=== PATIENT | male | born 1995 | race African-American/Black ===

== ENCOUNTER 2019-08-05 20:17 | Emergency (ER) | payer OTHER, MEDICARE, MEDICAID, SELFPAY ==
--- NOTE | ~2019-08-05 | XR_ITS ---
EXAMINATION: XR chest 1V portable INDICATION: Cough, exposure to COVID TECHNIQUE: Portable AP chest at 2130 hours COMPARISON: None available FINDINGS: There are minimal airspace opacities of the lung bases, left greater than right. No pleural effusion or pneumothorax is identified. The cardiomediastinal silhouette is normal. The visualized o sseous structures are unremarkable. IMPRESSION: 1. Bibasilar airspace opacities. Pattern is nonspecific but consistent with COVID pneumonia. Reviewed, dictated and finalized at location A. IMPRESSION: 1. Bibasilar airspace opacities. Pattern is nonspecific but consistent with COV ID pneumonia.
[2019-08-05 20:27] VITALS: BP 110/59; PULSE 89; RESP 18; TEMP 37.2; O2SAT 98
--- NOTE | 2019-08-05 21:37 | ED.GENADULT ---
HPI - General Adult General Chief complaint: Unspecified <LORI Fry Last Filed: 08/05/19 21:56> Stated complaint: wants tested for Covid <LORI Fry Last Filed: 08/05/19 21:56> Time Seen by Provider: 08/05/19 20:31 <LORI Fry Last Filed: 08/05/19 21:56> Source: patient <LORI Fry Last Filed: 08/05/19 21:56> Mode of arrival: ambulatory <LORI Fry Last Filed: 08/05/19 21:56> Limitations: no limitations <LORI Fry Last Filed: 08/05/19 21:56> History of Present Illness HPI narrative: This is a 24-year-old male that presents the emergency department for cold symptoms since yesterday. Reports cough, headache and sore throat. Reports he thinks he was exposed to coronavirus. Denies fever or shortness of breath <LORI Fry Last Filed: 08/05/19 21:56> Related Data Home medications: Home Medications Medication Instructions Recorded Confirmed chlorpromazine 01/01/19 oxcarbazepine 01/01/19 benztropine 08/05/19 08/05/19 buspirone mg 08/05/19 divalproex PO 08/05/19 divalproex PO 08/05/19 lithium carbonate 08/05/19 omeprazole 08/05/19 trazodone 08/05/19 <LORI Fry Last Filed: 08/05/19 21:56> Allergies/adverse reactions: Allergies Allergy/AdvReac Type Severity Reaction Status Date / Time banana Allergy Unknown Anaphylactic Verified 08/05/19 20:46 Shock latex Allergy Unknown Other Verified 08/05/19 20:46 <LORI Fry Last Filed: 08/05/19 21:56> Review of Systems Review of Systems: Narrative: CONSTITUTIONAL: Denies fever ENT: Reports rhinorrhea, congestion, sore throat CARDIOVASCULAR: Denies chest pain RESPIRATORY: Reports cough. Denies dyspnea. <Rajni Hernandez PA-C - Last Filed: 08/05/19 21:56> All systems reviewed & are unremarkable except as noted in HPI and below <Rajni Hernandez PA-C - Last Filed: 08/05/19 21:56> PMFSH Past Medical History Medical History: Medical History (Updated 08/05/19 @ 21:54 by Rajni Hernandez PA-C) Bipolar 1 disorder History of gastroesophageal reflux (GERD) Schizoaffective disorder <Rajni Hernandez PA-C - Last Filed: 08/05/19 21:56> Social History Social History: Social History Smoking status: Never smoker Alcohol intake: unknown <Rajni Hernandez PA-C - Last Filed: 08/05/19 21:56> Exam Narrative: Exam Narrative: GENERAL: Well-appearing, well-nourished, and in no acute distress. HEAD: Normocephalic, atraumatic. EYES: EOMI. ENT: Nares clear, no rhinorrhea or epistaxis. Mucous membranes moist. Oropharynx without tonsillar hypertrophy exudate or other lesions. Bilateral TMs pearly mayes non-bulging NECK: Supple. No adenopathy or masses. CHEST: Clear to auscultation. No respiratory distress. No wheezes rales or rhonchi HEART: Regular rate and rhythm. No murmur heard. Normal peripheral pulses. EXTREMITIES: Normal range of motion. No edema. SKIN: Warm, dry, no rash. NEURO: No focal deficits. Alert and oriented x3. PSYCH: Normal mood and affect <Rajni Hernandez PA-C - Last Filed: 08/05/19 21:56> Course Vital Signs Vital signs: Vital Signs Temperature 98.9 F 08/05/19 20: Pulse Rate 89 08/05/19 20: Respiratory Rate 18 08/05/19 20:27 Blood Pressure 110/59 L 08/05/19 20:27 Pulse Oximetry 98 08/05/19 20:27 Temperature 98.9 F 08/05/19 20:27 Pulse Rate 89 08/05/19 20:27 Respiratory Rate 18 08/05/19 20:27 Blood Pressure 110/59 L 08/05/19 20:27 Pulse Oximetry 98 08/05/19 20:27 <Rajni Hernandez PA-C - Last Filed: 08/05/19 21:56> Vital Signs Temperature 98.9 F 08/05/19 20:27 Pulse Rate 89 08/05/19 20:27 Respiratory Rate 18 08/05/19 20:27 Blood Pressure 110/59 L 08/05/19 20:27 Pulse Oximetry 98 08/05/19 20:27 Temperature 98.9 F 08/05/19 20:27
[2019-08-05 22:16] VITALS: BP 132/80; PULSE 80; RESP 20; TEMP 37.1; O2SAT 99
[2019-08-06 20:06] LABS: SARS-CoV-2 RNA PCR Positive
== END 2019-08-05 22:17 | disposition home or self-care (01) ==
PROVIDERS: Physician Assistant; Emergency Provider Emergency Medicine; PCP Family Medicine Adolescent Medicine
DX: U07.1 COVID-19 (principal); J12.89 Other viral pneumonia; F31.9 Bipolar disorder, unspecified; K21.9 Gastro-esophageal reflux disease without esophagitis; F25.9 Schizoaffective disorder, unspecified
CPT/HCPCS: 71045; 87081; 87635; 87880; 99283; C9803; U0003

== ENCOUNTER 2019-11-10 14:54 | Emergency (ER) | payer OTHER, MEDICARE, MEDICAID, SELFPAY ==
[2019-11-10 15:04] VITALS: BP 140/84; PULSE 90; RESP 20; TEMP 36.8; O2SAT 99
--- NOTE | 2019-11-10 15:10 | ECG_ITS ---
Measurements Intervals [place] Rate: 66 P: 32 [place]: 199 QRS: 38 QRSD: 102 T: 30 QT: 365 QTc: 382 Interpretive Statements SINUS RHYTHM VOLTAGE CRITERIA FOR LVH BASELINE ARTIFACT- I, III, AVL BORDERLINE ECG Electronically Signed On 11-10-2019 15:34:54 CDT by Nickolas Padilla D.O.
--- NOTE | 2019-11-10 15:12 | PC.NURSE ---
PT ANXIOUS ON ARRIVAL, PT ADMITS TO [place], WISHING THAT HIS LIFE WAS DIFFERENT. SAD, GUARDED. PT SAYS THAT HE HS BEEN COMPLIANT WITH MEDICATIONS.. PT ASKING FOR ANXIETY MEDICATION, NO NEW ORDERS AT THIS TIME
--- NOTE | 2019-11-10 15:25 | ED.GENADULT ---
HPI - General Adult General Chief complaint: Psychiatric Symptoms <Alyssa Dos Santos MD - Last Filed: 11/11/19 18:35> Stated complaint: SI <Alyssa Dos Santos MD - Last Filed: 11/11/19 18:35> Time Seen by Provider: 11/10/19 14:58 <Alyssa Dos Santos MD - Last Filed: 11/11/19 18:35> Source: patient <Alyssa Dos Santos MD - Last Filed: 11/11/19 18:35> History of Present Illness HPI narrative: Patient is a 24 y/o male complaining of depression, hallucination and intermittent suicidal ideations for last 2-3 weeks. He states that family problem is aggravating his condition. He does not have a suicidal plan at this time. <Alyssa Dos Santos MD - Last Filed: 11/11/19 18:35> Related Data Home medications: Home Medications Medication Instructions Recorded Confirmed benztropine 08/05/19 08/05/19 buspirone mg 08/05/19 divalproex PO 08/05/19 divalproex PO 08/05/19 lithium carbonate 08/05/19 trazodone 20 <Alyssa Dos Santos MD - Last Filed: 11/11/19 18:35> Allergies/adverse reactions: Allergies Allergy/AdvReac Type Severity Reaction Status Date / Time banana Allergy Unknown Anaphylactic Verified 11/10/19 15:01 Shock latex Allergy Unknown Other Verified 11/10/19 15:01 <Alyssa Dos Santos MD - Last Filed: 11/11/19 18:35> Review of Systems Constitutional: Constitutional: Denies chills, Denies fever(s), Denies headache(s) and Denies weakness <Alyssa Dos Santos MD - Last Filed: 11/11/19 18:35> Eyes: Eyes: Denies blurry vision <Alyssa Dos Santos MD - Last Filed: 11/11/19 18:35> ENT: Denies headache(s) and Denies neck pain <Alyssa Dos Santos MD - Last Filed: 11/11/19 18:35> Cardiovascular: Cardiovascular: Denies chest pain and Denies dyspnea <Alyssa Dos Santos MD - Last Filed: 11/11/19 18:35> Respiratory: Respiratory: Denies cough and Denies dyspnea <Alyssa Dos Santos MD - Last Filed: 11/11/19 18:35> Gastrointestinal: Gastrointestinal: Denies abdominal pain, Denies diarrhea, Denies nausea and Denies vomiting <Alyssa Dos Santos MD - Last Filed: 11/11/19 18:35> Genitourinary: Genitourinary: Denies hematuria and Denies dysuria <Alyssa Dos Santos MD - Last Filed: 11/11/19 18:35> Musculoskeletal: Musculoskeletal: Denies back pain and Denies neck pain <Alyssa Dos Santos MD - Last Filed: 11/11/19 18:35> Neurologic: Denies headache(s) and Denies weakness <Alyssa Dos Santos MD - Last Filed: 11/11/19 18:35> Psychiatric: Psychiatric: Reports as per HPI, Reports anxiety, Reports depression and Reports suicidal ideation <Alyssa Dos Santos MD - Last Filed: 11/11/19 18:35> [facility] Past Medical History Medical History: Medical History Bipolar 1 disorder History of gastroesophageal reflux (GERD) Schizoaffective disorder <Alyssa Dos Santos MD - Last Filed: 11/11/19 18:35> Social History Social History: Social History Smoking status: Never smoker Alcohol intake: unknown Gender identity (if verbalized by the patient): Male <Alyssa Dos Santos MD - Last Filed: 11/11/19 18:35> Exam Const: General: no acute distress and well developed <Alyssa Dos Santos MD - Last Filed: 11/11/19 18:35> Orientation/consciousness: oriented to person, oriented to place, oriented to time and patient oriented x3 <Alyssa Dos Santos MD - Last Filed: 11/11/19 18:35> HENMT: Head: normocephalic <Alyssa Dos Santos MD - Last Filed: 11/11/19 18:35> Ears: external ears normal <Alyssa Dos Santos MD - Last Filed: 11/11/19 18:35> General nose exam: Normal external nose present <Alyssa Dos Santos MD - Last Filed: 11/11/19 18:35> Eyes: General: appearance normal, both eyes and all related structures <Alyssa Dos Santos MD - Last Filed: 11/11/19 18:35> Conjunctivae: conjunctivae normal <Alyssa Dos Santos MD - Last Filed: 11/11/19 18:35> Neck: Neck: normal visual inspection and full ROM <Alyssa Dos Santos MD - Last Filed: 11/11/19 18:35> Chest: Chest
[2019-11-10 15:38] LABS: Basophils Percent Auto 0.5 % (0.2-1.2); Eosinophils Absolute Auto 0.2 K/mm3 (0-0.3); Eosinophils Percent Auto 2.8 % (0-4.4); Hematocrit 41.6 % (42.0-52.0); Immature Granulocyte Absolute 0.01 K/mm3 (0.00-0.031); Immature Granulocyte Percent A 0.1 % (0-0.5); Lymphocytes Absolute Auto 1.59 K/mm3 (0.9-3.2); Lymphocytes Percent Auto 21.3 % (18.3-44.2); Mean Corpuscular HGB Conc 33.7 g/dl (32-36); Mean Corpuscular Hemoglobin 28.6 pg (26-34); Mean Corpuscular Volume 84.9 fl (80-100); Mean Platelet Volume 10.3 fl (7.4-10.4); Monocytes Absolute Auto 0.5 K/mm3 (0.1-0.6); Monocytes Percent Auto 6.4 % (2.6-8.5); Neutrophils Absolute Auto 5.1 K/mm3 (1.3-6.7); Neutrophils Percent Auto 68.9 % (45.5-73.1); Platelet Count Result 241 k/mm3 (150-375); Red Cell Distribution Width 13.5 % (11.5-14.5); White Blood Count 7.5 K/mm3 (4.5-10.0)
[2019-11-10] MEDS: LORazepam (*CRX) 1 MG TABLET (15:42)
[2019-11-10 15:53] LABS: Alanine Aminotransferase 25 U/L (4-50); Albumin Level 4.5 g/dL (3.5-5.1); Alkaline Phosphatase 49 U/L (38-126); Anion Gap 9 mmol/L (8-16); Aspartate Amino Transferase 31 U/L (17-59); Bilirubin,Total 0.4 mg/dL (0.2-1.3); Blood Urea Nitrogen 8 mg/dL (9-20); Calcium 9.6 mg/dL (8.4-10.2); Carbon Dioxide 28 mmol/L (22-30); Chloride 106 mmol/L (98-107); Estimated CRCL calculation 111 ml/min; Estimated Glomerular Filt Rate > 60; Ethanol < 10 mg/dL (<10); Glucose 80 mg/dL (75-110); Potassium 3.7 mmol/L (3.4-5.0); Sodium 143 mmol/L (137-145)
--- NOTE | 2019-11-10 16:00 | PC.NURSE ---
pt in room, no agitation noted, speaking to sitter
[2019-11-10 16:08] LABS: Add Urine Microscopic? NO; Appearance Urine Clear (Clear); Bilirubin Urine Negative (Negative); Blood Urine Negative (Negative); Color Urine Yellow (Yellow); Glucose Urine UA Negative (Negative); Ketones Urine Negative (Negative); Leukocyte Esterase Ur Negative LEU/UL (Negative); Nitrate Urine Negative (Negative); Protein Urine Negative (Negative); Specific Grav Ur 1.016 (1.001-1.035); Urobilinogen Urine Negative mg/dL (<2.0)
[2019-11-10 16:10] LABS: Lithium < 0.2 mmol/L (0.6-1.2)
[2019-11-10 16:37] LABS: Amphetamine Screen Urine Negative (Negative); Barbiturate Screen Urine Negative (Negative); Benzodiazepines Screen Urine Negative (Negative); Cannabinoid Screen Urine Negative (Negative); Cocaine Screen Urine Negative (Negative); Methadone Screen Urine Negative (Negative); Opiate Screen Urine Negative (Negative); Phencyclidine Screen Urine Negative (Negative)
[2019-11-10 16:54] LABS: Valproic Acid 86.2 ug/mL (50-120)
--- NOTE | 2019-11-10 17:05 | PC.NURSE ---
in room, dinner tray ordered calm in room
--- NOTE | 2019-11-10 18:20 | PC.NURSE ---
awaiting crisis, pt remaining calm, no anger noted
--- NOTE | 2019-11-10 18:45 | PC.NURSE ---
crisis here to see the pt, pt calm in room crisis stated that they faxed three locations sitter at bedside
--- NOTE | 2019-11-10 19:52 | PC.NURSE ---
pt calm, watching tv in room, sitter at bedside calm and cooperative at this time
--- NOTE | 2019-11-10 21:00 | PC.NURSE ---
pt in room, lights out, sitter at bedside remains calm and cooperative
[2019-11-10 21:51] LABS: SARS-CoV-2 RNA PCR Negative
[2019-11-10 23:15] VITALS: BP 119/62; PULSE 59; RESP 16; TEMP 36.7; O2SAT 100
[2019-11-11 06:00] VITALS: BP 123/88; PULSE 60; RESP 17; O2SAT 99
[2019-11-11 07:47] VITALS: BP 132/101; PULSE 78; RESP 16
--- NOTE | 2019-11-11 09:30 | PC.NURSE ---
pt to shower accompanied by planning feeder and security.
--- NOTE | 2019-11-11 09:51 | PC.NURSE ---
per Dr. Luna pt is medically cleared for psych placement.
--- NOTE | 2019-11-11 09:56 | PC.NURSE ---
chart axed to [facility]
[2019-11-11] MEDS: LORazepam (*CRX) 0.5 MG TABLET PO (11:22)
--- NOTE | 2019-11-11 12:21 | PC.NURSE ---
Report given to SYLVIA Johnson at [facility] at 1218.
[2019-11-11 13:14] VITALS: BP 128/82; PULSE 80; RESP 18; TEMP 36.7; O2SAT 99
== END 2019-11-11 13:16 ==
PROVIDERS: Emergency Medicine; Emergency Provider Emergency Medicine; PCP Family Medicine Adolescent Medicine
DX: F31.9 Bipolar disorder, unspecified (principal); K21.9 Gastro-esophageal reflux disease without esophagitis; F25.9 Schizoaffective disorder, unspecified; Z20.828 Contact with and (suspected) exposure to other viral communicable diseases; R94.31 Abnormal electrocardiogram [ECG] [EKG]; Z79.899 Other long term (current) drug therapy
CPT/HCPCS: 36415; 80053; 80164; 80178; 80307; 81003; 84443; 85025; 87635; 93005; 99285; A9270; C9803; U0003

== ENCOUNTER 2019-11-30 11:40 | Emergency (ER) | payer OTHER, MEDICARE, MEDICAID, SELFPAY ==
[2019-11-30 11:50] VITALS: BP 137/84; PULSE 108; RESP 18; TEMP 36.8; O2SAT 100
[2019-11-30 12:35] LABS: Basophils Percent Auto 0.7 % (0.2-1.2); Eosinophils Absolute Auto 0.3 K/mm3 (0-0.3); Eosinophils Percent Auto 4.3 % (0-4.4); Hematocrit 40.9 % (42.0-52.0); Hemoglobin 13.7 g/dL (14.0-18.0); Immature Granulocyte Absolute 0.02 K/mm3 (0.00-0.031); Immature Granulocyte Percent A 0.3 % (0-0.5); Lymphocytes Absolute Auto 0.88 K/mm3 (0.9-3.2); Lymphocytes Percent Auto 14.6 % (18.3-44.2); Mean Corpuscular HGB Conc 33.5 g/dl (32-36); Mean Corpuscular Hemoglobin 29.1 pg (26-34); Mean Corpuscular Volume 86.8 fl (80-100); Mean Platelet Volume 9.8 fl (7.4-10.4); Monocytes Absolute Auto 0.5 K/mm3 (0.1-0.6); Monocytes Percent Auto 7.9 % (2.6-8.5); Neutrophils Absolute Auto 4.4 K/mm3 (1.3-6.7); Neutrophils Percent Auto 72.2 % (45.5-73.1); Platelet Count Result 224 k/mm3 (150-375); Red Blood Count 4.71 M/mm3 (4.6-6.20); Red Cell Distribution Width 13.9 % (11.5-14.5)
[2019-11-30 12:47] LABS: Alanine Aminotransferase 20 U/L (4-50); Albumin Level 4.3 g/dL (3.5-5.1); Alkaline Phosphatase 41 U/L (38-126); Anion Gap 10 mmol/L (8-16); Aspartate Amino Transferase 27 U/L (17-59); Bilirubin,Total 0.3 mg/dL (0.2-1.3); Blood Urea Nitrogen 9 mg/dL (9-20); Calcium 9.3 mg/dL (8.4-10.2); Carbon Dioxide 24 mmol/L (22-30); Chloride 108 mmol/L (98-107); Estimated CRCL calculation 159 ml/min; Estimated Glomerular Filt Rate > 60; Glucose 102 mg/dL (75-110); Sodium 142 mmol/L (137-145)
[2019-11-30 12:51] LABS: Ethanol < 10 mg/dL (<10)
[2019-11-30 13:03] LABS: Add Urine Microscopic? YES; Appearance Urine Clear (Clear); Bilirubin Urine Negative (Negative); Blood Urine Negative (Negative); Color Urine Yellow (Yellow); Glucose Urine UA Negative (Negative); Ketones Urine Negative (Negative); Leukocyte Esterase Ur Negative LEU/UL (Negative); Mucus Urine Rare /lpf; Nitrate Urine Negative (Negative); Protein Urine 1+ mg/dL (Negative); RBC Urine 0-2 /hpf (0-2); Specific Grav Ur 1.018 (1.001-1.035); Squamous Epithelial Cell Urine Rare /hpf (Few); Urobilinogen Urine Negative mg/dL (<2.0); WBC Urine 0-3 /hpf
[2019-11-30 13:12] LABS: Amphetamine Screen Urine Negative (Negative); Barbiturate Screen Urine Negative (Negative); Benzodiazepines Screen Urine Negative (Negative); Cannabinoid Screen Urine Negative (Negative); Cocaine Screen Urine Negative (Negative); Methadone Screen Urine Negative (Negative); Opiate Screen Urine Negative (Negative); Phencyclidine Screen Urine Negative (Negative)
[2019-11-30] MEDS: LORazepam (*CRX) 1 MG TABLET PO (13:32)
--- NOTE | 2019-11-30 14:50 | PC.NURSE ---
Pt ran from ED into parking lot. Pt stopped at edge of parking lot and redirected to room. Pt says the voices are making him run.
--- NOTE | 2019-11-30 15:03 | ED.GENADULT ---
HPI - General Adult General Chief complaint: Psychiatric Symptoms <Geovani Leon PA-C - Last Filed: 11/30/19 20:53> Stated complaint: SI <LORI Sanford Last Filed: 11/30/19 20:53> Time Seen by Provider: 11/30/19 12:34 <LORI Sanford Last Filed: 11/30/19 20:53> Source: patient and old records reviewed <LORI Sanford Last Filed: 11/30/19 20:53> Mode of arrival: EMS <LORI Sanford Last Filed: 11/30/19 20:53> Limitations: no limitations <LORI Sanford Last Filed: 11/30/19 20:53> History of Present Illness HPI narrative: Patient is a 24-year-old male with history of depression anxiety suicidal and homicidal ideations with multiple hospitalizations in the past and also including possible incarceration as described by the patient patient notes he is taking lithium and Depakote for mood stabilizers patient has been on these medications and notes that he has been compliant with his medications notes that he is now hearing voices telling him to harm others and himself patient denies having done anything to harm himself currently or others <Geovani Leon PA-C - Last Filed: 11/30/19 20:53> Related Data Home medications: Home Medications Medication Instructions Recorded Confirmed divalproex 250 PO 11/30/19 lithium carbonate 450 mg PO 11/30/19 buspirone 10 mg 12/01/19 <LORI Sanford Last Filed: 11/30/19 20:53> Allergies/adverse reactions: Allergies Allergy/AdvReac Type Severity Reaction Status Date / Time banana Allergy Unknown Anaphylactic Verified 11/30/19 12:01 Shock latex Allergy Unknown Other Verified 11/30/19 12:01 <LORI Sanford Last Filed: 11/30/19 20:53> Review of Systems Review of Systems: All systems reviewed & are unremarkable except as noted in HPI and below <LORI Sanford Last Filed: 11/30/19 20:53> PMFSH Past Medical History Medical History: Medical History (Updated 12/04/19 @ 00:00 by Background Daemon) Bipolar 1 disorder History of gastroesophageal reflux (GERD) Schizoaffective disorder <Geovani Leon PA-C - Last Filed: 11/30/19 20:53> Social History Social History: Social History Smoking status: Never smoker Alcohol intake: unknown Gender identity (if verbalized by the patient): Male <Geovani Leon PA-C - Last Filed: 11/30/19 20:53> Exam Narrative: Exam Narrative: GENERAL: Well-appearing, well-nourished, and in no acute distress. HEAD: Normocephalic, atraumatic. EYES: PERRLA and EOMI. ENT: Nares clear, no rhinorrhea or epistaxis. Mucous membranes moist. CHEST: Clear to auscultation. No respiratory distress. No wheezes rales or rhonchi HEART: Regular rate and rhythm. No murmur heard. EXTREMITIES: Normal range of motion. No edema. SKIN: Warm, dry, no rash. NEURO: No focal deficits. Alert and oriented x3. Cranial nerves II through XII grossly intact PSYCH: Normal mood and affect. <Geovani Leon PA-C - Last Filed: 11/30/19 20:53> Course Course Emergency Course: Crisis present evaluating the patient patient did attempt to run out of the emergency department but came back on his own accord patient notes that he continues to have voices telling him to harm himself and others and is requesting to be hospitalized. Patient has otherwise been compliant in his stay in the emergency department. <Geovani Leon PA-C - Last Filed: 11/30/19 20:53> 11/30/19 2300 care turned over to myself at shift change. Seen by myself resting in bed currently awaiting placement 12/01/[address] over [address]. Carbajal at shift change awaiting psychiatric placement further disposition <Don Rudd DO - Last Filed: 12/01/19 06:33> He has been medically cleared for psychiatric placement. <Naeem Martinez MD - Last Filed: 02/16/20 15:35> Reevaluation(
--- NOTE | 2019-11-30 15:06 | PC.NURSE ---
Crisis here to evaluate.
--- NOTE | 2019-11-30 18:20 | PC.NURSE ---
Sitting at bedside. Cooperative. Offers no c/o.
--- NOTE | 2019-11-30 20:32 | ECG_ITS ---
Measurements Intervals [place] Rate: 71 P: 50 [place]: 174 QRS: 63 QRSD: 91 T: 56 QT: 355 QTc: 388 Interpretive Statements SINUS RHYTHM WITH SINUS ARRHYTHMIA ST ELEVATION IN DIFFUSE LEADS- PROBABLY EARLY REPOLARIZATION BORDERLINE ECG Electronically Signed On 12-01-2019 6:48:17 CDT by Nickolas Padilla D.O.
--- NOTE | 2019-11-30 20:54 | PC.NURSE ---
Paperwork was faxed to [facility] at [phone]. More information was requested and sent at [phone].
[2019-12-01 05:03] VITALS: BP 124/84; PULSE 65; RESP 18; O2SAT 100
[2019-12-01 06:37] VITALS: BP 102/68; PULSE 78; RESP 16; O2SAT 98
[2019-12-01 07:34] VITALS: BP 117/68; PULSE 78; RESP 16; O2SAT 97
--- NOTE | 2019-12-01 08:36 | PC.NURSE ---
PT ASKING FOR SOMETHING FOR ANXIETY, VERBAL ORDER FROM [facility] FOR 1MG ATIVAN PO, WELL LITHIUM AND DEPAKOTE DOSES HE TAKES DAILY.
[2019-12-01] MEDS: LORazepam (*CRX) 1 MG TABLET PO (08:50)
--- NOTE | 2019-12-01 09:04 | PC.NURSE ---
SPOKE WITH SAMM FROM CRISIS ABOUT PT SI CHANGES, SHE STATES SHE NEEDS TO CALL HER BOSS AND DISCUSS NEW FINDINGS PRIOR TO COMING OUT TO REEVALUATE.
[2019-12-01] MEDS: LITHIUM CARBONATE 150 MG CAPSULE 450 MG PO ×2 (09:07→22:28)
[2019-12-01] MEDS: DIVALPROEX SODIUM ER 500 MG TAB PO (09:07)
--- NOTE | 2019-12-01 09:07 | PC.NURSE ---
SAMM FROM CRISIS CALLED BACK AND STATES THAT SHE WILL BE BACK TO REEVALUATE PT.
--- NOTE | 2019-12-01 10:04 | PC.NURSE ---
PER SAMM FROM CRISIS PT WILL NOT BE ADMITTED AT THIS TIME. SHE IS SPEAKING TO THE ERP AND WILL SEND PT HOME ON SAFETY CONTRACT.
--- NOTE | 2019-12-01 10:25 | PC.NURSE ---
PT USING PHONE WITH SAMM FROM CRISIS COMPLETING AN EVALUATION FOR CHESTNUT.
--- NOTE | 2019-12-01 10:40 | PC.NURSE ---
[facility]AL DISCUSSING CASE WITH SAMM AND [employer] HEAD PALLAVI BECAUSE HE DOES NOT WANT TO D/C PT DUE TO INTERMITENT SI STATEMENTS.
--- NOTE | 2019-12-01 11:08 | PC.NURSE ---
PER SAMM FROM CRISIS AND SMOG TECHNICIAN PALLAVI WE WILL BE KEEPING PT UNTIL 1100 TOMORROW WHEN HE WILL BE GOING TO [place].
[2019-12-01 16:30] LABS: SARS-CoV-2 RNA PCR Negative
--- NOTE | 2019-12-01 19:15 | PC.NURSE ---
report to michele Brandt at this time, she has assumed pt care.
[2019-12-01 19:31] VITALS: BP 137/85; PULSE 79; RESP 15; TEMP 36.7; O2SAT 100
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
[2019-12-01] MEDS: DIVALPROEX SODIUM 250 MG TAB.ER.24H PO (22:28)
[2019-12-01 22:33] VITALS: BP 140/78; PULSE 91; RESP 12; O2SAT 98
[2019-12-01] MEDS: LORazepam (*CRX) 0.5 MG TABLET PO (22:51)
--- NOTE | 2019-12-01 23:52 | PC.NURSE ---
Pt. paper work faxed to [facility] in [place], [facility], and [facility].
[2019-12-02 00:54] LABS: Lithium 0.7 mmol/L (0.6-1.2)
[2019-12-02 01:30] VITALS: BP 140/78; PULSE 102; RESP 15; O2SAT 97
--- NOTE | 2019-12-02 01:53 | PC.NURSE ---
Spoke w/ Monse from [facility]. scallop shucker physician refused patient at this time.
--- NOTE | 2019-12-02 05:00 | PC.NURSE ---
[facility] states they have no bed available
--- NOTE | 2019-12-02 07:15 | PC.NURSE ---
Report to SYLVIA Mckee she assumed care of pt. at this time.
--- NOTE | 2019-12-02 11:00 | PC.NURSE ---
received report from Rylee WARD. patient here for several days now waiting for placement at inpatient psych facility for treatment. notes reviewed. Crisis has met with patient and completed involuntary documents for admission. no change in overall condition. alert.oriented. resting on mattress with sitter at doorway. continue to monitor with 1:1 observation. patient appears comfortable. appears to be sleeping at times. no distress noted. food and drink offered. toilet offered. patient up to date with current treatment plan.
[2019-12-02 11:47] VITALS: BP 134/74; PULSE 88; RESP 16; O2SAT 99
--- NOTE | 2019-12-02 12:00 | PC.NURSE ---
continue to monitor with 1:1 observation. patient appears comfortable. appears to be sleeping at times. no distress noted. food and drink offered. toilet offered. patient up to date with current treatment plan.
--- NOTE | 2019-12-02 12:30 | PC.NURSE ---
patient resting. on observation. waiting for placement. documents faxed to 3 facilities. patient is currently under involuntary admission per crisis.
--- NOTE | 2019-12-02 13:30 | PC.NURSE ---
spoke with [facility]. they do have beds but for voluntary admission. paperwork signed by patient. eating lunch. no change in patient's condition. alert. oriented. cooperative today.
--- NOTE | 2019-12-02 13:40 | PC.NURSE ---
spoke with staff at [facility] for further patient information. questions answered.
--- NOTE | 2019-12-02 16:50 | PC.NURSE ---
patient in doorway. appears more agitated. sitter present. patient offered to order dinner tray by Cesia WARD. patient immediately became more agitated and started yelling I am sick of being here . making statements about killing ED staff and all white people . security notified.
--- NOTE | 2019-12-02 17:02 | PC.NURSE ---
patient suddenly agitated and punched door frame. standing in doorway yelling threats at charge nurse and other staff of ED. security notified.
--- NOTE | 2019-12-02 17:10 | PC.NURSE ---
patient continued to have threatening behavior. yelling and cussing at staff. I will kill you all . stop looking at me bitch . PARRIS called to ED.
--- NOTE | 2019-12-02 17:17 | PC.NURSE ---
[employer]D here. patient placed in handcuffs. does have open warrants as well. [employer] here discussing with scalehouse attendant and charge nurse.
--- NOTE | 2019-12-02 17:32 | PC.NURSE ---
patient released from handcuffs. back into room 15. PA discussing care with patient. will give meds for anxiety.
[2019-12-02] MEDS: diphenhydrAMINE HCl INJ 50 MG/ML VIAL IM (17:37)
[2019-12-02] MEDS: HALOPERIDOL LACTATE 5 MG/ML VIAL IM (17:37)
[2019-12-02] MEDS: LORazepam INJ (*CRX) 2 MG/ML VIAL IM (17:37)
--- NOTE | 2019-12-02 17:38 | PC.NURSE ---
patient less agitated. advised to lay down for medication to be given IM. patient cooperative now. IM shot given. [employer] still here to assist.
--- NOTE | 2019-12-02 19:58 | PC.NURSE ---
resting on stretcher. appears comfortable. appears to be sleeping. continue to monitor with 1:1 observation. patient appears comfortable. appears to be sleeping at times. no distress noted. food and drink offered. toilet offered. patient up to date with current treatment plan.
--- NOTE | 2019-12-02 20:56 | PC.NURSE ---
patient's chart reprinted with last documentation. waiting to hear official acceptance or denial from psych facilities. Crisis aware. resting on mattress on floor. appears to be sleeping. no signs of distress. will continue to monitor per protocol with sitter at door for 1:1 observation.
--- NOTE | 2019-12-02 21:18 | PC.NURSE ---
Pt packet faxed to [facility].
--- NOTE | 2019-12-02 21:42 | PC.NURSE ---
patient's chart faxed to [facility] at [phone]
[2019-12-03] VITALS: BP 131/79; PULSE 89; RESP 16; TEMP 36.8; O2SAT 95
--- NOTE | 2019-12-03 06:46 | PC.NURSE ---
Pt awake, calm and appropriate. He requested breakfast and a tray was ordered. Pt also requested to take a shower today and was told that he would be able to shower when a room became available which could be later today. Pt agreeable to this plan.
[2019-12-03] MEDS: DIVALPROEX SODIUM ER 500 MG TAB PO (07:25)
[2019-12-03] MEDS: LITHIUM CARBONATE 300 MG CAPSULE PO (07:25)
[2019-12-03] MEDS: LITHIUM CARBONATE 150 MG CAPSULE PO (07:26)
[2019-12-03 09:09] VITALS: BP 125/78; PULSE 98; RESP 18; TEMP 36.3; O2SAT 99
--- NOTE | 2019-12-03 09:53 | PC.NURSE ---
Face sheet faxed to [facility] in [place].
--- NOTE | 2019-12-03 09:55 | PC.NURSE ---
Chart faxed to [facility].
--- NOTE | 2019-12-03 10:19 | PC.NURSE ---
ERP spoke to [facility] access line for possible evaluation and placement.
--- NOTE | 2019-12-03 11:06 | PC.NURSE ---
[facility] has no beds available at this time.
--- NOTE | 2019-12-03 13:49 | PC.NURSE ---
RECCEIVED CALL FROM [facility]-THEY HAVE NO BEDS AVAILABLE.
[2019-12-03] MEDS: LORazepam (*CRX) 1 MG TABLET PO (16:17)
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
--- NOTE | 2019-12-03 17:47 | PC.NURSE ---
Trey Alberts from [facility] called to update this RN and get update regarding patient's plan of care for placement. No new information from any facilities at this time.
--- NOTE | 2019-12-03 19:17 | PC.NURSE ---
called [facility] to request transport. ETA 20 minutes
--- NOTE | 2019-12-03 19:49 | PC.NURSE ---
[facility] here
[2019-12-03 20:03] VITALS: BP 135/84; PULSE 71; RESP 20; TEMP 36.8; O2SAT 96
== END 2019-12-03 20:05 ==
PROVIDERS: Emergency Medicine; Emergency Medicine Emergency Medical Services; Emergency Provider Emergency Medicine; PCP Family Medicine Adolescent Medicine
DX: F25.9 Schizoaffective disorder, unspecified (principal); R45.850 Homicidal ideations; R45.851 Suicidal ideations; Z20.828 Contact with and (suspected) exposure to other viral communicable diseases; F31.9 Bipolar disorder, unspecified; K21.9 Gastro-esophageal reflux disease without esophagitis
CPT/HCPCS: 36415; 80053; 80164; 80165; 80178; 80307; 81001; 84443; 85025; 87635; 93005; 96372; 99285; A9270; C9803; J1200; J1630; J2060; U0003

== ENCOUNTER 2020-04-18 15:13 | Inpatient (IN) | payer OTHER, MEDICARE, MEDICAID, SELFPAY ==
[2020-04-18] VITALS (10 sets, daily range): BP systolic 115–137; BP diastolic 54–86; PULSE 54–92; RESP 13–19; TEMP 36.4–36.9; O2SAT 97–100
--- NOTE | 2020-04-18 15:10 | ECG_ITS ---
Measurements Intervals [place] Rate: 79 P: 40 [place]: 181 QRS: 44 QRSD: 95 T: 31 QT: 395 QTc: 455 Interpretive Statements SINUS RHYTHM ST ELEVATION IN DIFFUSE LEADS CONSISTENT WITH INJURY, PERICARDITIS, OR EARLY REPOLARIZATION ABNORMAL ECG Electronically Signed On 04-21-2020 12:59:13 CDT by Nickolas Padilla D.O.
--- NOTE | 2020-04-18 15:14 | ED.OVERDOSE ---
HPI - Overdose General Chief Complaint: Overdose Stated Complaint: overdose History of Present Illness HPI Narrative: Brought in by EMS after a medication overdose. He self reported that he took a handful each of lithium, hydroxyzine, and Abilify. This was about an hour prior to arrival. He was reportedly attempting to kill himself. He has had previous attempts. EMS noted him to be lethargic, but fully oriented. Related Data Home Medications Medication Instructions Recorded Confirmed divalproex 250 mg PO HS 11/30/19 04/18/20 lithium carbonate 450 mg PO BID 11/30/19 04/18/20 aripiprazole 5 mg PO DAILY 04/18/20 04/18/20 hydroxyzine HCl 25 mg PO QID PRN 04/18/20 04/18/20 Allergies Allergy/AdvReac Type Severity Reaction Status Date / Time banana Allergy Unknown Anaphylactic Verified 11/30/19 12:01 Shock latex Allergy Unknown Other Verified 11/30/19 12:01 Review of Systems Review of Systems: All systems reviewed & are unremarkable except as noted in HPI and below Constitutional: Constitutional: Denies fever(s) Cardiovascular: Cardiovascular: Denies chest pain Respiratory: Respiratory: Denies dyspnea [facility] Past Medical History Medical History (Updated 04/21/20 @ 19:01 by Naeem Martinez MD) Bipolar 1 disorder History of gastroesophageal reflux (GERD) Schizoaffective disorder Social History Social History Smoking status: Never smoker Alcohol intake: never Substance use: never Substance use type: does not use Gender identity (if verbalized by the patient): Male Spiritual care concerns: No Exam Const: General: healthy appearing and no acute distress Other: lethargic HENMT: Head: normal to inspection Eyes: Pupils: Equal, round and reactive pupils present Neck: Neck: normal visual inspection Resp: Effort & Inspection: normal respiratory effort Auscultation: clear to auscultation bilaterally Cardio: Rate: regular rate Rhythm: regular rhythm GI: GI Palp: Yes Soft to palpation and No Tenderness to palpation present (GI) Skin: General skin exam: normal color Neuro: General: moves all extremities, no focal motor deficits and CN's II-XI intact bilaterally Speech: normal speech Motor exam (neuro): 5/5 motor strength present throughout and No tremor noted Extrem: General: normal to inspection Psych: Thought content: Yes Suicidality present Course Vital Signs Vital signs: Vital Signs Temperature 36.8 C 04/18/20 15:07 Pulse Rate 92 04/18/20 15:07 Respiratory Rate 17 04/18/20 15:07 Blood Pressure 137/83 04/18/20 15:07 Pulse Oximetry 99 04/18/20 15:07 Temperature 36.3 C L 04/20/20 08:00 Pulse Rate 63 04/20/20 08:00 Respiratory Rate 12 04/20/20 08:00 Blood Pressure 142/78 H 04/20/20 08:00 Pulse Oximetry 100 04/20/20 08:00 MDM - Overdose MDM Narrative Medical decision making narrative: He took multiple drugs all which require long observation. Vitals and labs stable at this time. Case discussed with the police surgeon. Will admit to ICU as IMU status. The hospitalist will admit. Differential Diagnosis Differential diagnosis: Likely suicide attempt by multiple drug overdose Medical Records Attestation: I reviewed the patient's medical records. Lab Data Attestation: I reviewed the patient's lab results. Result diagrams: 04/19/20 04:07 04/19/20 04:07 Labs: Lab Results 04/18/20 04/18/20 04/18/20 Range/Units 15:16 15:16 15:16 WBC 7.4 (4.5-10.0) K/mm3 RBC 4.48 L (4.6-6.20) M/mm3 Hgb 12.7 L (14.0-18.0) g/dL Hct 38.3 L (42.0-52.0) % MCV 85.5 (80-100) fl MCH 28.3 (26-34) pg MCHC 33.2 (32-36) g/dl RDW 14.2 (11.5-14.5) % Plt Count 217 (150-375) k/mm3 MPV 9.3 (7.4-10.4) fl Immature Gran % (Auto) 0.3 (0-0.5) % Neut % (Auto) 65.3 (45.5-73.1) % Lymph % (Auto) 19.8 (18.3-44.2) % Swisher % (Auto
[2020-04-18] MEDS: SODIUM CHLORIDE 0.9% IV 1,000 ML 999 ML IV CONT (15:20)
--- NOTE | 2020-04-18 15:20 | PC.NURSE ---
called poison control at informed of pt taking lithium, atarax and abilfy hydroxyzine toxic dose is 800 mg max, peaks in 1-3 hrs, 1/2 life of 20 hrs, drowsiness, tachycardia and n/v abilify max dosing is 210mg, peaks in 3-5 hrs, 1/2 life of 3-6 days, sedation, tachycardia and ortho hypertension lithium, no max tolerated dose, vomiting, ataxia, drowsiness, peaks in 1-3 hrs. therapeutic dose 1/2 life of 17-27 hrs but suicidal overdose would be 32-58 hrs rec_baseline ekg, tylenol, salicylate, etoh, uds, lithium level symptoms can lag behind overdose by 12 -24 hrs lithium level every four hrs until trending down.
[2020-04-18 15:22] LABS: Basophils Percent Auto 0.3 % (0.2-1.2); Eosinophils Absolute Auto 0.2 K/mm3 (0-0.3); Eosinophils Percent Auto 2.6 % (0-4.4); Hematocrit 38.3 % (42.0-52.0); Hemoglobin 12.7 g/dL (14.0-18.0); Immature Granulocyte Absolute 0.02 K/mm3 (0.00-0.031); Immature Granulocyte Percent A 0.3 % (0-0.5); Lymphocytes Absolute Auto 1.46 K/mm3 (0.9-3.2); Lymphocytes Percent Auto 19.8 % (18.3-44.2); Mean Corpuscular HGB Conc 33.2 g/dl (32-36); Mean Corpuscular Hemoglobin 28.3 pg (26-34); Mean Corpuscular Volume 85.5 fl (80-100); Mean Platelet Volume 9.3 fl (7.4-10.4); Monocytes Absolute Auto 0.9 K/mm3 (0.1-0.6); Monocytes Percent Auto 11.7 % (2.6-8.5); Neutrophils Absolute Auto 4.8 K/mm3 (1.3-6.7); Neutrophils Percent Auto 65.3 % (45.5-73.1); Platelet Count Result 217 k/mm3 (150-375); Red Blood Count 4.48 M/mm3 (4.6-6.20); Red Cell Distribution Width 14.2 % (11.5-14.5); White Blood Count 7.4 K/mm3 (4.5-10.0)
[2020-04-18 15:35] LABS: Lithium 0.7 mmol/L (0.6-1.2)
[2020-04-18 15:36] LABS: Acetaminophen < 10 ug/mL (10-30); Ethanol < 10 mg/dL (<10); Salicylate < 1.0 mg/dL (2-20)
[2020-04-18 15:38] LABS: Alanine Aminotransferase 31 U/L (4-50); Albumin Level 4.1 g/dL (3.5-5.1); Alkaline Phosphatase 47 U/L (38-126); Anion Gap 5 mmol/L (8-16); Aspartate Amino Transferase 37 U/L (17-59); Bilirubin,Total 0.3 mg/dL (0.2-1.3); Blood Urea Nitrogen 7 mg/dL (9-20); Calcium 8.9 mg/dL (8.4-10.2); Carbon Dioxide 30 mmol/L (22-30); Chloride 105 mmol/L (98-107); Estimated CRCL calculation 133 ml/min; Estimated Glomerular Filt Rate > 60; Glucose 83 mg/dL (75-110); Potassium 4.2 mmol/L (3.4-5.0); Sodium 140 mmol/L (137-145)
[2020-04-18 15:52] LABS: Add Urine Microscopic? NO; Appearance Urine Clear (Clear); Bilirubin Urine Negative (Negative); Blood Urine Negative (Negative); Color Urine Straw (Yellow); Glucose Urine UA Negative (Negative); Ketones Urine Negative (Negative); Leukocyte Esterase Ur Negative LEU/UL (Negative); Mucus Urine Rare /lpf; Nitrate Urine Negative (Negative); Protein Urine Negative (Negative); RBC Urine 0-2 /hpf (0-2); Specific Grav Ur 1.009 (1.001-1.035); Urobilinogen Urine Negative mg/dL (<2.0); WBC Urine 0-3 /hpf
[2020-04-18 16:04] LABS: Amphetamine Screen Urine Negative (Negative); Barbiturate Screen Urine Negative (Negative); Benzodiazepines Screen Urine Negative (Negative); Cannabinoid Screen Urine Negative (Negative); Cocaine Screen Urine Negative (Negative); Methadone Screen Urine Negative (Negative); Opiate Screen Urine Negative (Negative); Phencyclidine Screen Urine Negative (Negative)
--- NOTE | 2020-04-18 18:34 | PC.NURSE ---
Pt admitted to ICU 4 from ED, arrives calm and cooperative, denies complaints, sitter at bedside. NSR on monitor, will monitor.
--- NOTE | 2020-04-18 19:37 | PM.IMHP ---
H&P: HPI History of Present Illness Date/Time: 04/18/20 19:37 Chief Complaint: suicidal attempt/ polysubstance overdose Narrative: 25 yo male who is brought in by EMS after a medicaton overdose. He reports that he took a handful of his own medications this afternoon which includes handful of lithium, hydroxyzine and abilify. He does not recall how many pills were there. He reports he was feeling depressed and wanted to kill himself. However once he realize what he did, he called EMS and came to the hospital. He states he might have felt a little nauseous while in the ambulance but currently feels well. He feels embarrased about what he did and he currenlty does not feel suicidal. he reports he has been admitted to the [facility] [place] past for the same, most recently a month ago. no fever, chills. no abdominal pain, nuasea, vmoiting. Review of Systems Constitutional: Constitutional: Denies body ache(s), Denies fatigue, Denies lethargy and Denies weakness Eyes: Eyes: Denies blurry vision and Denies photophobia ENT: Denies Normal hearing present and Denies tinnitus Cardiovascular: Cardiovascular: Denies chest pain, Denies diaphoresis, Denies leg edema, Denies lightheadedness and Denies palpitations Respiratory: Respiratory: Denies chest congestion, Denies cough, Denies hemoptysis, Denies dyspnea, Denies dyspnea on exertion and Denies wheezing Gastrointestinal: Gastrointestinal: Denies abdominal pain, Denies melena, Denies bloating, Denies hematochezia, Denies nausea and Denies vomiting Genitourinary: Genitourinary: Denies dysuria, Denies urinary frequency and Denies urinary incontinence Musculoskeletal: Musculoskeletal: Denies back pain, Denies arthralgias and Denies neck pain Integumentary/Breasts: Skin/Breast: Denies dry skin, Denies pruritus, Denies rash and Denies unusual bruising Neurologic: Denies Abnormal speech present, Denies abnormal gait, Denies vertigo, Denies headache(s) and Denies numbness Psychiatric: Psychiatric: Denies anxiety, Denies confusion and Denies depression PMFSH Past Medical History Medical History (Updated 04/18/20 @ 19:45 by Higinio Riddle MD) Bipolar 1 disorder History of gastroesophageal reflux (GERD) Schizoaffective disorder Social History Social History Smoking status: Never smoker Alcohol intake: never Substance use: never Substance use type: does not use Gender identity (if verbalized by the patient): Male Spiritual care concerns: No Meds Home Medications and Allergies Home Medications Medication Instructions Recorded Confirmed Type divalproex 250 mg PO HS 11/30/19 04/18/20 History lithium carbonate 450 mg PO BID 11/30/19 04/18/20 History aripiprazole 5 mg PO DAILY 04/18/20 04/18/20 History hydroxyzine HCl 25 mg PO QID PRN 04/18/20 04/18/20 History Allergies Allergy/AdvReac Type Severity Reaction Status Date / Time banana Allergy Unknown Anaphylactic Verified 11/30/19 12:01 Shock latex Allergy Unknown Other Verified 11/30/19 12:01 Vital Signs Vital Signs - 24 hr 04/18/20 15:07 04/18/20 15:46 04/18/20 16:20 Temperature 98.2 F 98.2 F Pulse Rate 92 80 76 Respiratory Rate 17 16 16 Blood Pressure 137/83 127/86 115/54 L Pulse Oximetry 99 100 99 04/18/20 17:02 04/18/20 18:00 Temperature Pulse Rate 77 71 Respiratory Rate 16 Blood Pressure 131/69 Pulse Oximetry 99 Exam Narrative: Exam Narrative: Const: General: healthy appearing and no acute distress HENMT: Head: normal to inspection, normocephalic and atrauamtic Eyes: Pupils: Equal, round and reactive pupils present, EOM intact Neck: Neck: normal visual inspection Resp: Effort & Inspection: normal respiratory effort Auscultation: clear to auscultation bilaterally Cardio: Rate: regular rate Rhythm: regular rhythm GI: GI Palp: Yes Soft to palpation and No Tenderness to palpation present (GI) Skin:
[2020-04-18] MEDS: SODIUM CHLORIDE 0.9% IV 1,000 ML 75 ML IV CONT (20:14)
--- NOTE | 2020-04-18 21:25 | PC.NURSE ---
Spoke with poison control, recommended [place] level Q6h until morning. Spoke with Dr. Reinoso, [place] level ordered for 2200, 0400.
[2020-04-18 22:14] LABS: Lithium 1.4 mmol/L (0.6-1.2)
[2020-04-19] VITALS (11 sets, daily range): BP systolic 130–143; BP diastolic 71–85; PULSE 59–79; RESP 14–18; TEMP 36.4–36.9; O2SAT 95–99
[2020-04-19 04:11] LABS: Basophils Percent Auto 0.4 % (0.2-1.2); Eosinophils Absolute Auto 0.2 K/mm3 (0-0.3); Eosinophils Percent Auto 3.4 % (0-4.4); Hematocrit 40.9 % (42.0-52.0); Hemoglobin 13.7 g/dL (14.0-18.0); Immature Granulocyte Absolute 0.01 K/mm3 (0.00-0.031); Immature Granulocyte Percent A 0.1 % (0-0.5); Lymphocytes Absolute Auto 1.08 K/mm3 (0.9-3.2); Lymphocytes Percent Auto 15.5 % (18.3-44.2); Mean Corpuscular HGB Conc 33.5 g/dl (32-36); Mean Corpuscular Hemoglobin 28.6 pg (26-34); Mean Corpuscular Volume 85.4 fl (80-100); Mean Platelet Volume 9.5 fl (7.4-10.4); Monocytes Percent Auto 14.1 % (2.6-8.5); Neutrophils Absolute Auto 4.6 K/mm3 (1.3-6.7); Neutrophils Percent Auto 66.5 % (45.5-73.1); Platelet Count Result 214 k/mm3 (150-375); Red Blood Count 4.79 M/mm3 (4.6-6.20); Red Cell Distribution Width 14.4 % (11.5-14.5)
[2020-04-19 04:24] LABS: Alanine Aminotransferase 28 U/L (4-50); Albumin Level 3.9 g/dL (3.5-5.1); Alkaline Phosphatase 45 U/L (38-126); Anion Gap 4 mmol/L (8-16); Aspartate Amino Transferase 30 U/L (17-59); Bilirubin,Total 0.4 mg/dL (0.2-1.3); Blood Urea Nitrogen 6 mg/dL (9-20); Calcium 9.2 mg/dL (8.4-10.2); Carbon Dioxide 28 mmol/L (22-30); Chloride 109 mmol/L (98-107); Estimated CRCL calculation 144 ml/min; Estimated Glomerular Filt Rate > 60; Glucose 89 mg/dL (75-110); Potassium 4.4 mmol/L (3.4-5.0); Sodium 141 mmol/L (137-145)
[2020-04-19 04:52] LABS: Lithium 1.1 mmol/L (0.6-1.2)
--- NOTE | 2020-04-19 05:43 | PC.NURSE ---
Updated poison control, poison control to sign off.
--- NOTE | 2020-04-19 08:51 | ECG_ITS ---
Measurements Intervals [place] Rate: 67 P: 53 [place]: 186 QRS: 60 QRSD: 94 T: 38 QT: 406 QTc: 430 Interpretive Statements SINUS RHYTHM ST ELEVATION IN DIFFUSE LEADS CONSISTENT WITH INJURY, PERICARDITIS, OR EARLY REPOLARIZATION ABNORMAL ECG Electronically Signed On 04-19-2020 10:51:51 CDT by Nickolas Padilla D.O.
--- NOTE | 2020-04-19 13:10 | PM.IMPN ---
Progress Note: A&P Assessment and Plan (1) Medication overdose: Code(s): T50.901A - Poisoning by unspecified drugs, medicaments and biological substances, accidental (unintentional), initial encounter Status: Acute Assessment and Plan: ECG this morning reviewed QTc interval wnl Cleared from poison control (2) Suicide attempt: Code(s): T14.91XA - Suicide attempt, initial encounter Status: Acute Assessment and Plan: Denies any thought of hurting himself at this time. Medically cleared for Psychs eval (3) Schizoaffective disorder: Code(s): F25.9 - Schizoaffective disorder, unspecified Status: Acute Assessment and Plan: Outpatient follow up. (4) Bipolar 1 disorder: Code(s): F31.9 - Bipolar disorder, unspecified Status: Acute Assessment and Plan: On Aripiprazole, [place] Carbonate, Divalproex and Hydroxisine Currently holding due to OD Subjective Date/time seen: 04/19/20 13:10 'I feel fine Review of Systems Review of Systems: Narrative: no thoughts of hurting himself. Constitutional: Comments: no fevers, no rigors, no chills, no weight loss. Cardiovascular: Comments: no chest pain, no leg swelling no orthopnea. Respiratory: Comments: no sob, no cough, no sputum production. Gastrointestinal: Comments: no n/v/abdominal pain. Musculoskeletal: Comments: no muscle ache, no joint pain. Integumentary/Breasts: Comments: no rashes. Neurologic: Comments: no sensory motor deficit. Exam Narrative: Exam Narrative: Lying in bed Const: General: cooperative, healthy appearing, comfortable, no acute distress, alert, awake and Physically active Nutritional Appearance: average body habitus Orientation/consciousness: patient oriented x3 HENMT: Head: normal to inspection and normocephalic Ears: hearing grossly normal bilaterally General nose exam: Normal external nose present Face and sinus: normal facial exam Mouth: Yes Normal oral and palatal mucosa present Eyes: General: appearance normal, both eyes and all related structures Pupils: Equal, round and reactive pupils present EOM: EOMs intact bilaterally Neck: Neck: no lymphadenopathy, supple and no JVD Lymphatic: no lymphadenopathy noted Resp: Effort & Inspection: normal respiratory effort and able to speak in complete sentences Auscultation: clear to auscultation bilaterally Cardio: Jugular venous distension: no JVD Rate: regular rate Rhythm: regular rhythm GI: Inspection: normal to inspection GI Palp: Yes Soft to palpation and Yes No hepatosplenomegaly present Skin: Rashes: no rashes Neuro: General: patient oriented x3 and CN's II-XI intact bilaterally Cranial nerves: Yes CN's II-XII intact bilaterally and Yes Equal, round and reactive pupils present Cognition (Neuro): normal cognition Speech: normal speech Motor exam (neuro): 5/5 motor strength present throughout Extrem: General: no joint enlargement and no pedal edema Objective Data Vital Signs Vital Signs: Vital Signs - 24 hr 04/18/20 15:07 04/18/20 15:46 04/18/20 16:20 Temperature 98.2 F 98.2 F Pulse Rate 92 80 76 Respiratory Rate 17 16 16 Blood Pressure 137/83 127/86 115/54 L Pulse Oximetry 99 100 99 04/18/20 17:02 04/18/20 18:00 04/18/20 19:52 Temperature 97.5 F L Pulse Rate 77 71 54 L Respiratory Rate 16 19 Blood Pressure 131/69 131/80 Pulse Oximetry 99 100 04/18/20 20:00 04/18/20 22:00 04/18/20 23:28 Temperature Pulse Rate 63 68 70 Respiratory Rate 13 19 Blood Pressure Pulse Oximetry 100 97 04/18/20 23:31 04/19/20 00:00 04/19/20 02:00 Temperature 98.4 F Pulse Rate 67 62 59 L Respiratory Rate 18 Blood Pressure 134/67 Pulse Oximetry 97 04/19/20 03:19 04/19/20 03:52 04/19/20 04:00 Temperature 97.6 F Pulse Rate 61 63 76 Respiratory Rate 16 16 Blood Pressure 134/74 Pulse Oximetry 95 99 04/19/20 06:00 04/19/20 08:00 04/19/20 10:00 Temperature 98.3 F
--- NOTE | 2020-04-19 16:37 | PC.NURSE ---
Dr. Pedro told me at 11:30 am today that pt is medically cleared to transfer out of facility.
--- NOTE | 2020-04-19 19:52 | ECG_ITS ---
Measurements Intervals [place] Rate: 65 P: 26 [place]: 196 QRS: 66 QRSD: 84 T: 46 QT: 400 QTc: 419 Interpretive Statements SINUS RHYTHM ST ELEVATION IN DIFFUSE LEADS CONSISTENT WITH INJURY, PERICARDITIS, OR EARLY REPOLARIZATION ABNORMAL ECG Electronically Signed On 04-20-2020 7:19:03 CDT by Nickolas Padilla D.O.
[2020-04-19 21:05] LABS: SARS-CoV-2 RNA PCR Negative
--- NOTE | 2020-04-19 22:49 | PC.NURSE ---
Report given to [facility]. All documentation included negative covid swab and medical clearance has been faxed. No further questions. Patient to go to room 12A. Will call the facility when EMS arrives for transportation.
--- NOTE | 2020-04-19 23:22 | PC.NURSE ---
This nurse to resume pt. care. Report received from previous nurse SYLVIA Leonardo.
[2020-04-20] VITALS: BP 124/85; PULSE 65; RESP 18; O2SAT 98
--- NOTE | 2020-04-20 07:22 | PC.NURSE ---
[facility] facility called [facility]. Facility number [phone]. EMS to transport patient and expected time of arrival is 0800 a.m.
[2020-04-20 08:00] VITALS: BP 142/78; PULSE 63; RESP 12; TEMP 36.3; O2SAT 100
--- NOTE | 2020-04-20 09:54 | PC.NURSE ---
Update facility on patient's ETA.
--- NOTE | 2020-04-25 16:14 | PM.TDS ---
Transfer Discharge Sum: Prov Provider Date of admission: 04/18/20 16:11 Primary care physician: David Campbell MD Admitting clinician: Neda Pedro MD Consults: 04/18/20 Care Coordination Consult Routine Comment: Reason for Consult:: Crisis Intervention Attending physician on discharge: Neda Pedro V. Discharging clinician: Neda Pedro V. Anticipated date of transfer: 04/19/20 DS: Admitting Diagnosis Admitting Diagnosis Admitting Diagnosis: -suicide attempt -OD on his home meds - bipolar disorder - major depression DS: Discharge Diagnosis Discharge Diagnosis (1) Medication overdose: Code(s): T50.901A - Poisoning by unspecified drugs, medicaments and biological substances, accidental (unintentional), initial encounter Status: Acute Assessment and Plan: cleared by poison Control (2) Suicide attempt: Code(s): T14.91XA - Suicide attempt, initial encounter Status: Acute Assessment and Plan: patient will be transferred to outside psych Facility (3) Schizoaffective disorder: Code(s): F25.9 - Schizoaffective disorder, unspecified Status: Acute Assessment and Plan: divalproex aripiprazole (4) Bipolar 1 disorder: Code(s): F31.9 - Bipolar disorder, unspecified Status: Acute Assessment and Plan: on lithium carbonate Transfer Discharge Sum: Med Medications Active and Home Medications: Home Medications divalproex 250 mg PO HS 11/30/19 [History Confirmed 04/18/20] lithium carbonate 450 mg PO BID 11/30/19 [History Confirmed 04/18/20] aripiprazole 5 mg PO DAILY 04/18/20 [History Confirmed 04/18/20] hydroxyzine HCl 25 mg PO QID PRN 04/18/20 [History Confirmed 04/18/20] Transfer Discharge Sum: Hosp Hospital Course Hospital course: Umesh Good is a 25 year old male the was admitted overnight after patient took a handful his home medications with the purpose of committing suicide. Patient was monitored overnight was placed on suicidal precautions, seater at bedside 1:1 patient was clear in the morning by poison control. he was medically stable and evaluated by crisis intervention he was transferred to outside psych facility. Time Spent with Patient Time attestation: Total time spent providing and/or coordinating transfer services: Exam Const: General: comfortable, no acute distress, well developed, alert and awake Nutritional Appearance: average body habitus Orientation/consciousness: patient oriented x3 HENMT: Head: normal to inspection, normocephalic and atraumatic Ears: hearing grossly normal bilaterally Face and sinus: normal facial exam Eyes: General: appearance normal, both eyes and all related structures Pupils: Equal, round and reactive pupils present EOM: EOMs intact bilaterally Neck: Neck: full ROM, no lymphadenopathy and no JVD Thyroid: thyroid normal Lymphatic: no lymphadenopathy noted Resp: Effort & Inspection: normal respiratory effort and able to speak in complete sentences Auscultation: clear to auscultation bilaterally Cardio: Jugular venous distension: no JVD Rate: regular rate Rhythm: regular rhythm Heart sounds: S1 normal heart sound present and S2 normal heart sound present GI: GI Palp: Yes Soft to palpation and Yes No hepatosplenomegaly present : General: Yes deferred Skin: Rashes: no rashes Wounds: no wounds Neuro: General: patient oriented x3 and CN's II-XI intact bilaterally Cranial nerves: Yes CN's II-XII intact bilaterally and Yes Equal, round and reactive pupils present Cognition (Neuro): normal cognition Speech: normal speech Gait exam (Neuro): Normal gait present Motor exam (neuro): 5/5 motor strength present throughout Extrem: General: normal to inspection, full ROM, no joint enlargement and no pedal edema DS: Data Data Completed and Pending Completed studies during hospitalization: Measurements Intervals Axi
== END 2020-04-20 08:20 | disposition other institution (70) | DRG 918 ==
LOC: ANHED 16:05 → ANHICU 16:43
PROVIDERS: Family Medicine; Internal Medicine; Admitting Provider Internal Medicine; Emergency Provider Emergency Medicine; PCP Family Medicine Adolescent Medicine; Visit Provider Internal Medicine
DX: T43.592A Poisoning by other antipsychotics and neuroleptics, intentional self-harm, initial encounter (principal); F25.9 Schizoaffective disorder, unspecified; F31.9 Bipolar disorder, unspecified; Z20.822 Contact with and (suspected) exposure to COVID-19; Z91.5 Personal history of self-harm
CPT/HCPCS: 36415; 80053; 80178; 80307; 81003; 85025; 93005; 99285; C9803; J7030; U0003; U0005

== ENCOUNTER 2020-05-07 15:55 | Emergency (ER) | payer OTHER, MEDICARE, MEDICAID, SELFPAY ==
[2020-05-07 16:15] VITALS: BP 135/72; PULSE 96; RESP 18; TEMP 36.3; O2SAT 100
[2020-05-07 16:43] LABS: Basophils Percent Auto 0.5 % (0.2-1.2); Eosinophils Absolute Auto 0.1 K/mm3 (0-0.3); Hematocrit 42.5 % (42.0-52.0); Immature Granulocyte Absolute 0.01 K/mm3 (0.00-0.031); Immature Granulocyte Percent A 0.2 % (0-0.5); Lymphocytes Absolute Auto 1.37 K/mm3 (0.9-3.2); Lymphocytes Percent Auto 23.3 % (18.3-44.2); Mean Corpuscular HGB Conc 32.9 g/dl (32-36); Mean Corpuscular Hemoglobin 28.2 pg (26-34); Mean Corpuscular Volume 85.7 fl (80-100); Mean Platelet Volume 9.5 fl (7.4-10.4); Monocytes Absolute Auto 0.4 K/mm3 (0.1-0.6); Monocytes Percent Auto 6.5 % (2.6-8.5); Neutrophils Percent Auto 68.5 % (45.5-73.1); Platelet Count Result 277 k/mm3 (150-375); Red Blood Count 4.96 M/mm3 (4.6-6.20); Red Cell Distribution Width 13.8 % (11.5-14.5); White Blood Count 5.9 K/mm3 (4.5-10.0)
[2020-05-07 16:48] LABS: Add Urine Microscopic? NO; Appearance Urine Clear (Clear); Bilirubin Urine Negative (Negative); Blood Urine Negative (Negative); Color Urine Yellow (Yellow); Glucose Urine UA Negative (Negative); Ketones Urine Negative (Negative); Leukocyte Esterase Ur Negative LEU/UL (Negative); Nitrate Urine Negative (Negative); Protein Urine Negative (Negative); Specific Grav Ur 1.018 (1.001-1.035); Urobilinogen Urine Negative mg/dL (<2.0)
[2020-05-07 16:53] LABS: Ethanol < 10 mg/dL (<10)
[2020-05-07 17:03] LABS: Amphetamine Screen Urine Negative (Negative); Barbiturate Screen Urine Negative (Negative); Benzodiazepines Screen Urine Negative (Negative); Cannabinoid Screen Urine Negative (Negative); Cocaine Screen Urine Negative (Negative); Methadone Screen Urine Negative (Negative); Opiate Screen Urine Negative (Negative); Phencyclidine Screen Urine Negative (Negative)
--- NOTE | 2020-05-07 18:15 | PC.NURSE ---
Pt eating dinner. Conversing with sitter and is friendly and cooperative. Denies other needs at present.
[2020-05-07 18:16] LABS: Alanine Aminotransferase 29 U/L (4-50); Albumin Level 4.7 g/dL (3.5-5.1); Alkaline Phosphatase 54 U/L (38-126); Anion Gap 5 mmol/L (8-16); Aspartate Amino Transferase 34 U/L (17-59); Bilirubin,Total 0.2 mg/dL (0.2-1.3); Blood Urea Nitrogen 11 mg/dL (9-20); Calcium 9.4 mg/dL (8.4-10.2); Carbon Dioxide 29 mmol/L (22-30); Chloride 109 mmol/L (98-107); Estimated CRCL calculation 137 ml/min; Estimated Glomerular Filt Rate > 60; Glucose 91 mg/dL (75-110); Potassium 4.2 mmol/L (3.4-5.0); Sodium 143 mmol/L (137-145)
--- NOTE | 2020-05-07 18:39 | ED.PSYCH ---
HPI - Psych General Chief Complaint: Psychiatric Symptoms <Percy España MD - Last Filed: 05/10/20 14:31> Stated Complaint: si <Percy España MD - Last Filed: 05/10/20 14:31> Time Seen by Provider: 05/07/20 15:59 <Percy España MD - Last Filed: 05/10/20 14:31> History of Present Illness HPI Narrative: Patient is a 25-year-old male who presents to the ER with suicidal ideation. Reports that he has depression and often thinks about this. Became worse after drinking some alcohol 5 days ago. Reports he plans on committing suicide by [employer]. He denies any drug or alcohol ingestion today. He is not hearing voices or seeing things that are not actually there. Patient recently attempted overdose on his lithium 3 weeks ago. He denies any attempt on his life today. <Percy España MD - Last Filed: 05/10/20 14:31> Related Data Home Medications: Home Medications Medication Instructions Recorded Confirmed divalproex 250 mg PO HS 11/30/19 04/18/20 lithium carbonate 450 mg PO BID 11/30/19 04/18/20 aripiprazole 5 mg PO DAILY 04/18/20 04/18/20 hydroxyzine HCl 25 mg PO QID PRN 04/18/20 04/18/20 <Percy España MD - Last Filed: 05/10/20 14:31> Allergies/Adverse Reactions: Allergies Allergy/AdvReac Type Severity Reaction Status Date / Time banana Allergy Unknown Anaphylactic Verified 11/30/19 12:01 Shock latex Allergy Unknown Other Verified 11/30/19 12:01 <Percy España MD - Last Filed: 05/10/20 14:31> Review of Systems Review of Systems: All systems reviewed & are unremarkable except as noted in HPI and below <Percy España MD - Last Filed: 05/10/20 14:31> Constitutional: Constitutional: Denies chills, Denies fever(s) and Denies weakness <Percy España MD - Last Filed: 05/10/20 14:31> Gastrointestinal: Gastrointestinal: Denies abdominal pain, Denies diarrhea, Denies nausea and Denies vomiting <Percy España MD - Last Filed: 05/10/20 14:31> Musculoskeletal: Musculoskeletal: Denies back pain and Denies muscle cramps <Percy España MD - Last Filed: 05/10/20 14:31> Psychiatric: Psychiatric: Reports anxiety, Reports depression, Denies homicidal ideation and Reports suicidal ideation <Percy España MD - Last Filed: 05/10/20 14:31> PMFSH Past Medical History Medical History: Medical History (Updated 05/08/20 @ 23:37 by Percy España MD) Bipolar 1 disorder History of gastroesophageal reflux (GERD) Schizoaffective disorder <Percy España MD - Last Filed: 05/10/20 14:31> Social History Social History: Social History Smoking status: Never smoker Alcohol intake: never Substance use: never Substance use type: marijuana Gender identity (if verbalized by the patient): Male Spiritual care concerns: No <Percy España MD - Last Filed: 05/10/20 14:31> Exam Narrative: Exam Narrative: GENERAL: Well-appearing, well-nourished, and in no acute distress. HEAD: Normocephalic, atraumatic. EYES: PERRL and EOMI. CHEST: Clear to auscultation. No respiratory distress. HEART: Regular rate and rhythm.. Normal peripheral pulses. ABDOMEN: Soft, nontender, nondistended. EXTREMITIES: Normal range of motion. No edema. SKIN: Warm, dry, no rash. NEURO: Alert and oriented x3. PSYCH: Patient reports being depressed and suicidal. Not actively responding to internal stimuli. Affect is not fully flat. <Percy España MD - Last Filed: 05/10/20 14:31> Course Course Emergency Course: Patient was reevaluated by intake is still continues to be suicidal still awaiting for placement. Patient is medically stable sitting in his room in no discomfort <Gray Tejdea MD - Last Filed: 05/09/20 12:53> Reevaluation(s) Reevaluation #1: Patient medically cleared for psych eval. <Percy España MD - Last Filed: 05/10/20 14:31> Date: 05/07/20 <An
--- NOTE | 2020-05-07 19:08 | PC.NURSE ---
Covid swab collected. Pt requests something for anxiety.
--- NOTE | 2020-05-07 19:46 | PC.NURSE ---
Attempt to contact Crisis Intervention, rings multiple times and then goes to voice mail. Message left to return call. Pt updated that contacting crisis. Remains pleasant and cooperative. Report to SYLVIA Mancera, to continue care.
--- NOTE | 2020-05-07 20:07 | PC.NURSE ---
talked to crisis.
[2020-05-07 21:19] VITALS: BP 130/70; PULSE 79; RESP 20; O2SAT 99
--- NOTE | 2020-05-07 22:48 | PC.NURSE ---
[facility] not accept [facility] . pt not able to come here.
--- NOTE | 2020-05-07 23:22 | PC.NURSE ---
crisis returned call. they will continue to look for other placement.
--- NOTE | 2020-05-07 23:38 | PC.NURSE ---
[facility] called and denied r/t insurance and [facility] called and denied r/t acuity.
--- NOTE | 2020-05-07 23:59 | PC.NURSE ---
called crisis spoke to lorenzo, advised of [facility] and [facility] denial, she advised there are 4 other places and wait for there called back, and resume in the morning.
--- NOTE | 2020-05-08 01:03 | PC.NURSE ---
dr. hernandez denied admission @ [facility]
[2020-05-08 02:44] VITALS: BP 129/77; PULSE 51; RESP 18
[2020-05-08 02:54] LABS: SARS-CoV-2 RNA PCR Negative
[2020-05-08 06:04] VITALS: BP 126/65; PULSE 58; RESP 18; O2SAT 98
[2020-05-08 07:14] VITALS: BP 106/58; PULSE 58; RESP 18; O2SAT 100
--- NOTE | 2020-05-08 11:00 | PC.NURSE ---
PT SLEEPING AT THIS TIME, NO NEEDS AT THIS TIME
[2020-05-08 11:35] VITALS: BP 136/84; PULSE 84; RESP 16; O2SAT 98
--- NOTE | 2020-05-08 12:30 | PC.NURSE ---
AWAKE, ASKING FOR SHOWER, CALL TO HS, will go with medical customer service representative and security
--- NOTE | 2020-05-08 13:00 | PC.NURSE ---
pt asking for anxiety medication, order from dr kellogg for ativan 1 mg po x1
[2020-05-08] MEDS: LORazepam (*CRX) 1 MG TABLET PO (15:03)
--- NOTE | 2020-05-08 15:13 | PC.NURSE ---
[facility] asked for info to be faxed to [facility], faxed at [phone]
--- NOTE | 2020-05-08 16:10 | PC.NURSE ---
PT IN ROOM, NO NEEDS AT THIS TIME, CALM AND COOPERATIVE
--- NOTE | 2020-05-08 17:05 | PC.NURSE ---
IN ROOM, CALM AND THIS TIME
--- NOTE | 2020-05-08 18:05 | PC.NURSE ---
[facility] DENIED PT, D/T TO HAVING NO BEDS AT THIS TIME
--- NOTE | 2020-05-08 19:18 | PC.NURSE ---
Report received from SYLVIA Romero. Assumed care of patient at this time.
--- NOTE | 2020-05-09 02:15 | PC.NURSE ---
Patient escorted back to room via security. 2150 Patient runs out of ambulance doors again. PD called.
[2020-05-09 04:35] VITALS: BP 135/59; PULSE 87; RESP 16; O2SAT 99
--- NOTE | 2020-05-09 06:16 | PC.NURSE ---
Patient stating he is becoming more anxious. VORB give 1mg PO ativan.
[2020-05-09] MEDS: LORazepam (*CRX) 1 MG TABLET PO ×2 (06:22→16:51)
--- NOTE | 2020-05-09 06:47 | PC.NURSE ---
Mayra from Crisis calls to get update on patient. She states she will look again for placement for patient..
--- NOTE | 2020-05-09 07:23 | PC.NURSE ---
requested paperwork faxed to [facility]
--- NOTE | 2020-05-09 07:36 | PC.NURSE ---
requested paperwork faxed to [facility]
[2020-05-09 07:42] VITALS: BP 137/81; PULSE 65; RESP 20; TEMP 36.5; O2SAT 100
--- NOTE | 2020-05-09 08:09 | PC.NURSE ---
patient reports that he is no longer having thoughts of self harm and just wants to go home
--- NOTE | 2020-05-09 09:19 | PC.NURSE ---
pt states to Nadya WARD he is longer suicidal. Sudha removed. Called Crisis and they are sending out another person to re-eval pt. [facility] has [facility] the pt admission
--- NOTE | 2020-05-09 10:57 | PC.NURSE ---
[facility] but will [facility] to keep patient on waiting list
--- NOTE | 2020-05-09 11:40 | PC.NURSE ---
[facility] here to evaluate patient.
--- NOTE | 2020-05-09 11:53 | PC.NURSE ---
patient continues to deny thoughts of self harm. patient states he told the [employer] worker I told her what she wanted to hear . patient states he wnts to be hospitalized
[2020-05-09 16:00] VITALS: BP 132/68; PULSE 78; RESP 18; O2SAT 99
--- NOTE | 2020-05-09 16:24 | PC.NURSE ---
patient continues to deny thoughts of self harm. states wants to go home because he has court on sunday. states that he told the social psychologist he was still thinking about hurting himself because she pressured him into saying it
--- NOTE | 2020-05-09 16:28 | PC.NURSE ---
pt walked in hallway towards ambulance doors - states he is leaving - told him he cannot leave - let me talk to doctor. pt is back in room. Security at bedside
--- NOTE | 2020-05-09 20:58 | PC.NURSE ---
Patient no longer suicidal. ERP and charge nurse notified.
--- NOTE | 2020-05-09 21:05 | PC.NURSE ---
Diego Nicole from Crisis calls to give fax number to fax patient's chart. Fax number is [phone].
--- NOTE | 2020-05-09 21:45 | PC.NURSE ---
Patient runs out ambulance doors screaming. Security notified.
--- NOTE | 2020-05-09 21:49 | PC.NURSE ---
Toni from [facility] calls to get triage info on patient.
--- NOTE | 2020-05-09 22:00 | PC.NURSE ---
Patient brought back to room by PD. Patient restrained per VORB, patient aggressive, yelling and threatening staff and PD.
[2020-05-09] MEDS: LORazepam INJ (*CRX) 2 MG/ML VIAL IM (22:09)
--- NOTE | 2020-05-09 22:10 | PC.NURSE ---
2342 Julia from [facility] calls to inform that the patient has been accepted by and gave room number of Intake 01. Julia informed that the patient attempted to elope and is retrained and medicated. Julia stated the patient still has a bed and to attempt to arrange transport. Patient in room, restrained, thrashing and yelling, threatening staff and PD.
[2020-05-09] MEDS: OLANZapine 10 MG INJ VIAL IM (22:53)
--- NOTE | 2020-05-09 23:00 | PC.NURSE ---
Restraints removed per VORB. Patient resting and no longer aggressive. Patient has sitter at bedside.
--- NOTE | 2020-05-10 00:03 | PC.NURSE ---
Called [facility] to arrange transport to [facility], [address] [place] [address]. Accepted, ETA is 08:00. Trip # [id number]
[2020-05-10 03:44] VITALS: BP 109/57; PULSE 61; RESP 15; TEMP 36.6; O2SAT 99
--- NOTE | 2020-05-10 07:15 | PC.NURSE ---
[facility] called states that there is no ALS truck to take patient to [place] today, unless we switch the transport to [facility]
--- NOTE | 2020-05-10 07:30 | PC.NURSE ---
Per EDP verbal order patient is ok to transport by BLS at this time. Patient is calm and cooperating with staff
--- NOTE | 2020-05-10 08:12 | PC.NURSE ---
low has arrived
== END 2020-05-10 08:24 ==
PROVIDERS: Emergency Provider Emergency Medicine; PCP Family Medicine Adolescent Medicine
DX: R45.851 Suicidal ideations (principal); F31.9 Bipolar disorder, unspecified; F25.9 Schizoaffective disorder, unspecified; K21.9 Gastro-esophageal reflux disease without esophagitis; Z20.822 Contact with and (suspected) exposure to COVID-19; Z79.899 Other long term (current) drug therapy
CPT/HCPCS: 36415; 80053; 80307; 81003; 84443; 85025; 96372; 99285; A9270; C9803; J2060; U0003; U0005

== ENCOUNTER 2020-06-04 20:38 | Emergency (ER) | payer OTHER, MEDICARE, MEDICAID, SELFPAY ==
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
[2020-06-04 20:42] VITALS: BP 157/83; PULSE 111; RESP 20; TEMP 36.8; O2SAT 96
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
[2020-06-04] MEDS: ACETAMINOPHEN 500 MG TABLET 1000 MG PO (21:30)
== END 2020-06-04 22:28 | disposition home or self-care (01) ==
PROVIDERS: Emergency Provider Emergency Medicine; PCP Family Medicine Adolescent Medicine
DX: S60.413A Abrasion of left middle finger, initial encounter (principal); S60.415A Abrasion of left ring finger, initial encounter; S60.417A Abrasion of left little finger, initial encounter; F31.9 Bipolar disorder, unspecified; K21.9 Gastro-esophageal reflux disease without esophagitis; F20.9 Schizophrenia, unspecified; Y04.0XXA Assault by unarmed brawl or fight, initial encounter
CPT/HCPCS: 73130; 99283; A9270

== ENCOUNTER 2020-06-06 01:51 | Emergency (ER) | payer OTHER, MEDICARE, MEDICAID, SELFPAY ==
[2020-06-06 01:53] VITALS: BP 137/83; PULSE 82; RESP 18; TEMP 36.6; O2SAT 100
--- NOTE | 2020-06-06 01:55 | ED.PSYCH ---
HPI - Psych General Chief Complaint: Psychiatric Symptoms <Don Rudd DO - Last Filed: 06/06/20 23:01> Stated Complaint: SI, HI, coming from PD station <Don Rudd DO - Last Filed: 06/06/20 23:01> Time Seen by Provider: 06/06/20 01:51 <Don Rudd DO - Last Filed: 06/06/20 23:01> Source: RN notes reviewed <Don Rudd DO - Last Filed: 06/06/20 23:01> History of Present Illness HPI Narrative: Patient presents to emergency department via EMS for suicidal ideation. Patient states that he was having suicidal and homicidal ideations this evening. Patient walked into a police department stating saying he was having suicidal ideation. EMS was called at that time for transport. States he has tried to commit suicide before in the past and if he went home he would try to kill himself states he has overdosed before in the past he denies any recent illness states he does see psychiatrist and is on Tegretol he denies any fevers or chills chest pain shortness of breath or any other symptoms <Don Rudd DO - Last Filed: 06/06/20 23:01> Related Data Home Medications: Home Medications Medication Instructions Recorded Confirmed divalproex 250 mg PO HS 11/30/19 04/18/20 lithium carbonate 450 mg PO BID 11/30/19 04/18/20 aripiprazole 5 mg PO DAILY 04/18/20 04/18/20 hydroxyzine HCl 25 mg PO QID PRN 04/18/20 04/18/20 aripiprazole [Abilifpraveena Maintena] mg IM 06/06/20 carbamazepine 06/06/20 carbamazepine 06/06/20 <Don Rudd DO - Last Filed: 06/06/20 23:01> Allergies/Adverse Reactions: Allergies Allergy/AdvReac Type Severity Reaction Status Date / Time banana Allergy Unknown Anaphylactic Verified 06/06/20 02:09 Shock latex Allergy Unknown Other Verified 06/06/20 02:09 <Don Rudd DO - Last Filed: 06/06/20 23:01> Review of Systems Review of Systems: Narrative: Gen.: Denies fevers or chills Eyes: Denies eye pain or visual change ENT: Denies congestion Respiratory: Denies shortness of breath or cough CV: Denies chest pain or palpitations GI: Denies abdominal pain nausea, emesis or diarrhea Musculoskeletal: Denies back pain or muscle pain Neuro: Denies numbness, tingling, weakness or focal weakness Skin: Denies rash Psych: See HPI Except as documented, all other systems reviewed and negative <Don Rudd DO - Last Filed: 06/06/20 23:01> [facility] Past Medical History Medical History: Medical History Bipolar 1 disorder History of gastroesophageal reflux (GERD) Schizoaffective disorder <Don Rudd DO - Last Filed: 06/06/20 23:01> Surgical History Surgical History: Surgical History (Updated 06/04/20 @ 21:01 by Percy España MD) No pertinent past surgical history <Don Rudd DO - Last Filed: 06/06/20 23:01> Social History Social History: Social History Smoking status: Never smoker Alcohol intake: never Substance use: never Substance use type: unknown Gender identity (if verbalized by the patient): Male Spiritual care concerns: No <Don Rudd DO - Last Filed: 06/06/20 23:01> Exam Narrative: Exam Narrative: APPEARANCE: nontoxic, resting in bed EYES: EOMI HEENT: Normocephalic, atraumatic, OMM RESPIRATORY: No respiratory distress Clear to auscultation bilaterally with no rhonchi wheezing or rales. CARDIOVASCULAR: Regular rate and rhythm without murmurs rubs or gallops. ABDOMINAL: Soft, nontender, nondistended, no rebound or guarding MUSCULOSKELETAl: Moves all extremities. No clubbing, cyanosis or edema. NEURO: Awake and alert. Following commands, speech normal, no focal deficits SKIN:: Warm, dry. No rashes lesions or abrasions PSYCHIATRIC: Agitated in room, reports suicidal ideation, reports homicidal ideation <oDn Rudd DO - Last Filed: 06/06/20 23
[2020-06-06] MEDS: LORazepam (*CRX) 1 MG TABLET PO ×2 (02:03→14:45)
[2020-06-06 02:19] LABS: Basophils Absolute Auto 0.1 K/mm3 (0.0-0.1); Basophils Percent Auto 1.1 % (0.2-1.2); Eosinophils Absolute Auto 0.1 K/mm3 (0-0.3); Eosinophils Percent Auto 1.4 % (0-4.4); Hematocrit 40.2 % (42.0-52.0); Immature Granulocyte Absolute 0.01 K/mm3 (0.00-0.031); Immature Granulocyte Percent A 0.2 % (0-0.5); Lymphocytes Absolute Auto 1.23 K/mm3 (0.9-3.2); Lymphocytes Percent Auto 27.7 % (18.3-44.2); Mean Corpuscular HGB Conc 32.3 g/dl (32-36); Mean Corpuscular Hemoglobin 27.8 pg (26-34); Mean Corpuscular Volume 85.9 fl (80-100); Mean Platelet Volume 9.9 fl (7.4-10.4); Monocytes Absolute Auto 0.5 K/mm3 (0.1-0.6); Monocytes Percent Auto 12.2 % (2.6-8.5); Neutrophils Absolute Auto 2.6 K/mm3 (1.3-6.7); Neutrophils Percent Auto 57.4 % (45.5-73.1); Platelet Count Result 243 k/mm3 (150-375); Red Blood Count 4.68 M/mm3 (4.6-6.20); Red Cell Distribution Width 13.5 % (11.5-14.5); White Blood Count 4.4 K/mm3 (4.5-10.0)
[2020-06-06 02:26] LABS: Ethanol < 10 mg/dL (<10)
[2020-06-06 02:28] LABS: Alanine Aminotransferase 28 U/L (4-50); Albumin Level 4.5 g/dL (3.5-5.1); Alkaline Phosphatase 62 U/L (38-126); Anion Gap 8 mmol/L (8-16); Aspartate Amino Transferase 32 U/L (17-59); Bilirubin,Total < 0.1 mg/dL (0.2-1.3); Blood Urea Nitrogen 9 mg/dL (9-20); Calcium 9.2 mg/dL (8.4-10.2); Carbon Dioxide 26 mmol/L (22-30); Chloride 109 mmol/L (98-107); Estimated CRCL calculation 135 ml/min; Estimated Glomerular Filt Rate > 60; Glucose 102 mg/dL (75-110); Sodium 143 mmol/L (137-145)
[2020-06-06 02:58] LABS: Amphetamine Screen Urine Negative (Negative); Barbiturate Screen Urine Negative (Negative); Benzodiazepines Screen Urine Negative (Negative); Cannabinoid Screen Urine Negative (Negative); Cocaine Screen Urine Negative (Negative); Methadone Screen Urine Negative (Negative); Opiate Screen Urine Negative (Negative); Phencyclidine Screen Urine Negative (Negative)
[2020-06-06 03:02] LABS: Add Urine Microscopic? YES; Appearance Urine Clear (Clear); Bilirubin Urine Negative (Negative); Blood Urine Negative (Negative); Color Urine Yellow (Yellow); Glucose Urine UA Negative (Negative); Ketones Urine Negative (Negative); Leukocyte Esterase Ur Negative LEU/UL (Negative); Mucus Urine Few /lpf; Nitrate Urine Negative (Negative); Protein Urine 1+ mg/dL (Negative); RBC Urine 0-2 /hpf (0-2); WBC Urine 0-3 /hpf
[2020-06-06 03:03] LABS: Specific Grav Ur 1.032 (1.001-1.035)
--- NOTE | 2020-06-06 03:06 | PC.NURSE ---
Contacted Crisis, spoke with Mojgan to have patient evaluated. Per ERP patient is medically cleared at this time to be evaluated.
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
--- NOTE | 2020-06-06 05:19 | PC.NURSE ---
[id number] [phone]. Chart faxed.
--- NOTE | 2020-06-06 06:15 | PC.NURSE ---
Crisis Legal Adviser agrrees with need for admission after interviewing pt. CHART faxed to the following: Eri - please call for update on admit status at 0800. Long - REBECCA [facility] DECLINED at the following: [facility] - NO beds [facility] - [facility]
--- NOTE | 2020-06-06 06:24 | PC.NURSE ---
[id number] Herlinda from [facility] states she needs patient's labs faxed to [phone].
--- NOTE | 2020-06-06 06:42 | PC.NURSE ---
0698 Ashu from [facility] calls to get info on patient. Ashu states he will give the info to the intake department and they will call back shortly.
--- NOTE | 2020-06-06 06:46 | PC.NURSE ---
Svetlana from [facility] states they are unable to accept the patient until the covid results are back. She did state to call [phone] when the test is resulted. fiscal technician notified.
--- NOTE | 2020-06-06 07:20 | PC.NURSE ---
Pt ambulated steady gait to BR, calm and cooperative. Non-labored respirations. Meal tray ordered. 1:[address], awaiting psych placement
--- NOTE | 2020-06-06 09:10 | PC.NURSE ---
Pt sitting up on cart, chatting calmly with sitter. Pt states he ate his breakfast, denies complaints, updated on POC
--- NOTE | 2020-06-06 10:10 | PC.NURSE ---
Spoke with shop foreman at [facility], states they will page intake and have them call Hayden back for update on acceptance
[2020-06-06 11:30] VITALS: BP 141/66; PULSE 88; RESP 16; TEMP 36.7; O2SAT 99
--- NOTE | 2020-06-06 14:33 | PC.NURSE ---
Patient requesting ativan. He states that he is feeling very anxious and paranoid. I asked if there was anything else I would be able to do to help him and he tells me no. Machelleter remaining at bedside.
--- NOTE | 2020-06-06 15:15 | PC.NURSE ---
Bedside report provided to leanna lockhart. She had no questions for me at that time.
[2020-06-06 16:49] VITALS: BP 131/88; PULSE 81; RESP 18; TEMP 36.6; O2SAT 100
--- NOTE | 2020-06-06 18:47 | PC.NURSE ---
fabric coating supervisor notified that patient requests to use the shower and get cleaned up. They will work to find an area and will let us know. Patient made aware of this and understands it may be a while until we are able to get him to shower.
--- NOTE | 2020-06-06 19:16 | PC.NURSE ---
Pt sitting up at side of bed. Per offgoing RN, pt requested to take a shower. Presently awaiting house charge aide for further instructions. Sitter at bedside. Direct observation continues.
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
--- NOTE | 2020-06-07 00:03 | PC.NURSE ---
pt appears to be resting in bed without s/s of distress. Resps even/ nonlabored. Even, symmetric chest rise/fall. sitter remains at bedside This RN awaiting pt's Covid swab result in anticipation of voluntary placement.
[2020-06-07 03:45] VITALS: BP 125/74; PULSE 54; RESP 16; TEMP 36.8; O2SAT 18
[2020-06-07] MEDS: LORazepam (*CRX) 1 MG TABLET PO ×2 (05:00→10:14)
--- NOTE | 2020-06-07 07:19 | PC.NURSE ---
Pt sleeping. Sitter at door. room safe
[2020-06-07 08:02] VITALS: BP 113/73; PULSE 58; RESP 18; TEMP 36.8; O2SAT 99
--- NOTE | 2020-06-07 08:36 | PC.NURSE ---
Informed both charge nurse and EDP that pt is low risk according to [place] suicide scale.
--- NOTE | 2020-06-07 09:03 | PC.NURSE ---
Mayra from crisis called and wanted to know if pts COVID test came back. Informed Mayra that no it had not. Also informed her that pt denied any SI/Hi for this RN. Mayra asked me to go and verify with pt he was still having no SI/HI thoughts. Pt states No . Informed Mayra and she states she will be out shorty to revaluate pt
--- NOTE | 2020-06-07 09:30 | PC.NURSE ---
Mayra from Crisis here to see pt.
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
--- NOTE | 2020-06-07 10:25 | PC.NURSE ---
melvin alanis has arrived
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
[2020-06-07 13:55] LABS: SARS-CoV-2 RNA PCR Negative
== END 2020-06-07 10:33 | disposition home or self-care (01) ==
PROVIDERS: Emergency Medicine; Emergency Provider Emergency Medicine; PCP Family Medicine Adolescent Medicine
DX: R45.6 Violent behavior (principal); F31.9 Bipolar disorder, unspecified; K21.9 Gastro-esophageal reflux disease without esophagitis; F25.9 Schizoaffective disorder, unspecified; Z79.899 Other long term (current) drug therapy; Z20.822 Contact with and (suspected) exposure to COVID-19
CPT/HCPCS: 36415; 80053; 80307; 81001; 84443; 85025; 99283; A9270; C9803; U0003; U0005

== ENCOUNTER 2020-06-08 22:25 | Emergency (ER) | payer OTHER, MEDICARE, MEDICAID, SELFPAY ==
[2020-06-08 22:29] VITALS: BP 158/93; PULSE 82; RESP 18; TEMP 36.7; O2SAT 100
--- NOTE | 2020-06-08 22:35 | PC.NURSE ---
patient refuses to provide information about past medical history, pharmacy, or current medications. patient just keeps repeating that he does not want to be here
== END 2020-06-08 22:53 | disposition left against medical advice (07) ==
PROVIDERS: PCP Family Medicine Adolescent Medicine
DX: R45.6 Violent behavior (principal)
CPT/HCPCS: 99199

== ENCOUNTER 2021-01-11 02:49 | Emergency (ER) | payer OTHER, MEDICARE, MEDICAID, SELFPAY ==
--- NOTE | 2021-01-11 02:42 | ED.OVERDOSE ---
HPI - Overdose General Chief Complaint: Overdose <Justine Luna MD - Last Filed: 01/11/21 06:18> Stated Complaint: tylenol overdose, suicide attempt <Justine Luna MD - Last Filed: 01/11/21 06:18> Time Seen by Provider: 01/12/21 17:22 <Justine Luna MD - Last Filed: 01/11/21 06:18> Source: patient and EMS <Justine Luna MD - Last Filed: 01/11/21 06:18> Mode of arrival: EMS <Justine Luna MD - Last Filed: 01/11/21 06:18> Limitations: no limitations <Justine Luna MD - Last Filed: 01/11/21 06:18> History of Present Illness HPI Narrative: Patient is a 25-year-old male with a history of bipolar disorder, schizoaffective disorder, depression with history of suicide attempt in the past, presenting for evaluation of intentional Tylenol overdose. Patient reportedly took 19, 500 mg tablets of extra strength Tylenol approximately one hour ago. Pt is estimating the timing of these ingestion. Patient states that he wanted to end his life because he is constantly messing up. States that people expect him to mess up and he hasn't accomplished nothing. Patient reports history of suicidal attempt in the past with multiple psychiatric hospitalizations. <Justine Luna MD - Last Filed: 01/11/21 06:18> Related Data Home Medications: Home Medications Medication Instructions Recorded Confirmed divalproex 250 mg PO HS 11/30/19 04/18/20 lithium carbonate 450 mg PO BID 11/30/19 04/18/20 aripiprazole 5 mg PO DAILY 04/18/20 04/18/20 hydroxyzine HCl 25 mg PO QID PRN 04/18/20 04/18/20 aripiprazole [Abilikrysten Maintena] mg IM 06/06/20 carbamazepine 06/06/20 carbamazepine 06/06/20 <Justine Luna MD - Last Filed: 01/11/21 06:18> Allergies/Adverse Reactions: Allergies Allergy/AdvReac Type Severity Reaction Status Date / Time banana Allergy Unknown Anaphylactic Verified 06/06/20 02:09 Shock latex Allergy Unknown Other Verified 06/06/20 02:09 <Justine Luna MD - Last Filed: 01/11/21 06:18> Review of Systems Review of Systems: CONSTITUTIONAL: Denies fever CARDIOVASCULAR: Denies chest pain RESPIRATORY: Denies cough or dyspnea. GASTROINTESTINAL: Denies abdominal pain SKIN: Denies rash MUSCULOSKELETAL: Denies back pain NEUROLOGIC: Denies headache PSYCHIATRIC: Reports depression, reports suicidal ideation with plan to overdose <Justine Luna MD - Last Filed: 01/11/21 06:18> [facility] Past Medical History Medical History: Medical History Bipolar 1 disorder History of gastroesophageal reflux (GERD) Schizoaffective disorder <Justine Luna MD - Last Filed: 01/11/21 06:18> Surgical History Surgical History: Surgical History No pertinent past surgical history <Justine Luna MD - Last Filed: 01/11/21 06:18> Social History Social History: Social History Smoking status: Never smoker Alcohol intake: never Substance use: never Substance use type: marijuana, crack/cocaine and methamphetamine Gender identity (if verbalized by the patient): Male Spiritual care concerns: No <Justine Luna MD - Last Filed: 01/11/21 06:18> Exam Narrative: GENERAL: Awake, alert, conversant, cooperative, sitting in hospital bed HEAD: Normocephalic, atraumatic. EYES: PERRLA and EOMI. ENT: Nares clear, no rhinorrhea or epistaxis. Mucous membranes moist. NECK: Supple. CHEST: No respiratory distress, breathing even and non labored HEART: Regular rate, sinus rhythm ABDOMEN:Non distended, non tender EXTREMITIES: Normal range of motion. No edema. SKIN: Warm, dry, no rash. NEURO:No focal deficits. Alert and oriented x3 <Justine Luna MD - Last Filed: 01/11/21 06:18> Course Course Emergency Course: 01/12/21 2100 care turned over to myself at shift de leon
[2021-01-11 02:48] VITALS: BP 138/99; PULSE 88; RESP 18; TEMP 36.9; O2SAT 98
--- NOTE | 2021-01-11 02:53 | ECG_ITS ---
Measurements Intervals [place] Rate: 77 P: 28 [place]: 168 QRS: 38 QRSD: 94 T: 24 QT: 345 QTc: 391 Interpretive Statements SINUS RHYTHM WITH MARKED SINUS ARRHYTHMIA ST ELEVATION IN DIFFUSE LEADS- PROBABLY EARLY REPOLARIZATION ABNORMALITY MINIMAL Q WAVES- INF/LAT LEADS BORDERLINE ECG Electronically Signed On 01-11-2021 5:25:10 TEAM GUIDE by Nickolas Padilla D.O.
[2021-01-11 03:21] LABS: Basophils Percent Auto 0.3 % (0.2-1.2); Eosinophils Absolute Auto 0.1 K/mm3 (0-0.3); Eosinophils Percent Auto 1.3 % (0-4.4); Hematocrit 40.7 % (42.0-52.0); Hemoglobin 13.7 g/dL (14.0-18.0); Immature Granulocyte Absolute 0.01 K/mm3 (0.00-0.031); Immature Granulocyte Percent A 0.2 % (0-0.5); Lymphocytes Absolute Auto 2.16 K/mm3 (0.9-3.2); Lymphocytes Percent Auto 35.4 % (18.3-44.2); Mean Corpuscular HGB Conc 33.7 g/dl (32-36); Mean Corpuscular Hemoglobin 29.5 pg (26-34); Mean Corpuscular Volume 87.5 fl (80-100); Mean Platelet Volume 9.7 fl (7.4-10.4); Monocytes Absolute Auto 0.7 K/mm3 (0.1-0.6); Neutrophils Absolute Auto 3.2 K/mm3 (1.3-6.7); Neutrophils Percent Auto 51.8 % (45.5-73.1); Platelet Count Result 200 k/mm3 (150-375); Red Blood Count 4.65 M/mm3 (4.6-6.20); Red Cell Distribution Width 15.1 % (11.5-14.5); White Blood Count 6.1 K/mm3 (4.5-10.0)
[2021-01-11 03:26] LABS: Add Urine Microscopic? YES; Appearance Urine Clear (Clear); Bilirubin Urine Negative (Negative); Blood Urine Negative (Negative); Color Urine Yellow (Yellow); Glucose Urine UA Negative (Negative); Ketones Urine Trace mg/dL (Negative); Leukocyte Esterase Ur Negative LEU/UL (Negative); Mucus Urine Rare /lpf; Nitrate Urine Negative (Negative); Protein Urine Negative (Negative); RBC Urine 0-2 /hpf (0-2); Specific Grav Ur 1.025 (1.001-1.035); WBC Urine 0-3 /hpf
[2021-01-11 03:31] LABS: Alanine Aminotransferase 57 U/L (4-50); Albumin Level 4.6 g/dL (3.5-5.1); Alkaline Phosphatase 67 U/L (38-126); Anion Gap 12 mmol/L (8-16); Aspartate Amino Transferase 47 U/L (17-59); Bilirubin,Total 0.4 mg/dL (0.2-1.3); Blood Urea Nitrogen 13 mg/dL (9-20); Calcium 9.3 mg/dL (8.4-10.2); Carbon Dioxide 23 mmol/L (22-30); Chloride 104 mmol/L (98-107); Estimated CRCL calculation 135 ml/min; Estimated Glomerular Filt Rate > 60; Glucose 104 mg/dL (65-110); Sodium 139 mmol/L (137-145)
[2021-01-11 03:36] LABS: Amphetamine Screen Urine Negative (Negative); Barbiturate Screen Urine Negative (Negative); Benzodiazepines Screen Urine Negative (Negative); Cannabinoid Screen Urine Negative (Negative); Cocaine Screen Urine Negative (Negative); Methadone Screen Urine Negative (Negative); Opiate Screen Urine Negative (Negative); Phencyclidine Screen Urine Negative (Negative)
[2021-01-11 03:48] LABS: Acetaminophen 33 ug/mL (10-30); Ethanol < 10 mg/dL (<10); Salicylate < 1.0 mg/dL (2-20)
--- NOTE | 2021-01-11 03:59 | PC.NURSE ---
Pt reports that he normally takes multiple substances including alcohol, cocaine, marijuanna, and amphetamines. He says that he ran out of money so he has not taken anything in a while. Poison control contacted by EDP Dr. Luna.
[2021-01-11 06:06] LABS: Acetaminophen 51 ug/mL (10-30)
--- NOTE | 2021-01-11 06:20 | PC.NURSE ---
Per EDP Dr. Luna pt is medically cleared at this time.
--- NOTE | 2021-01-11 06:27 | PC.NURSE ---
Spoke with Dimitrios from [place] who reports someone will be out to evaluate the pt
--- NOTE | 2021-01-11 07:51 | PC.NURSE ---
Updated poison control Juan on Tylenol levels, he states levels are not toxic enough for therapy therefore he is closing the account
--- NOTE | 2021-01-11 08:45 | PC.NURSE ---
Spoke with Joanne with Crisis after she evaluated pt, states he will be voluntary, awaiting for PCR before she can call and find placement, she states she will call back around 1000 to see if it has resulted
[2021-01-11 10:33] VITALS: BP 121/80; PULSE 69; RESP 18; TEMP 36.5; O2SAT 100
--- NOTE | 2021-01-11 10:37 | PC.NURSE ---
Offered pt lunch tray he agreed to try to eat, pt cooperated with vital signs
--- NOTE | 2021-01-11 11:51 | PC.NURSE ---
Assumed care of patient. Pt in room, lying on bed conversing with sitter at bedside. Even/unlabored respirations, appears in NAD, denies any needs at this time. COVID swab pending then plan to call Crisis.
[2021-01-11] MEDS: OLANZapine DISPERTAB 5 MG 10 MG PO (15:30)
[2021-01-11 18:25] VITALS: BP 105/72; PULSE 67; RESP 15; O2SAT 98
[2021-01-11 20:28] LABS: SARS-CoV-2 RNA PCR Negative
[2021-01-11 23:00] VITALS: BP 151/68; PULSE 57; RESP 16; O2SAT 97
[2021-01-12 06:00] VITALS: BP 146/74; PULSE 69; RESP 16; O2SAT 100
[2021-01-12] MEDS: OLANZapine DISPERTAB 5 MG 10 MG PO (08:12)
[2021-01-12 17:45] VITALS: BP 158/77; PULSE 65; RESP 12; TEMP 36.6; O2SAT 100
[2021-01-12] MEDS: LORazepam (*CRX) 1 MG TABLET PO (20:38)
--- NOTE | 2021-01-13 02:00 | PC.NURSE ---
Pt requesting to possibly get re-ealuated by Crisis to see if he could be sent home and allow him to follow up with his psych MD next week at his appointment rather than wait in the ER for a bed. RN spoke with auditor in charge about crisis re-evaluation, stated that they typically will not come out for re-eval until pt has been in the ER for 72 hrs. Pt notified of this, but told will attempt to call in the AM to see if they will come early for re-evaluation.
--- NOTE | 2021-01-13 07:57 | PC.NURSE ---
Sleeping. Sitter at bedside.
== END 2021-01-13 09:15 | disposition home or self-care (01) ==
PROVIDERS: Emergency Medicine; Emergency Provider General Practice
DX: T39.1X2A Poisoning by 4-Aminophenol derivatives, intentional self-harm, initial encounter (principal); F31.9 Bipolar disorder, unspecified; F25.9 Schizoaffective disorder, unspecified; K21.9 Gastro-esophageal reflux disease without esophagitis; Z20.822 Contact with and (suspected) exposure to COVID-19; R94.31 Abnormal electrocardiogram [ECG] [EKG]
CPT/HCPCS: 36415; 80053; 80307; 81001; 84443; 85025; 87426; 93005; 99284; A9270; C9803; U0003; U0005